=== PATIENT | male | born 1965 | race Caucasian/White ===

== ENCOUNTER 2020-12-06 19:11 | Emergency (ER) | payer MEDICAID, SELFPAY ==
--- NOTE | ~2020-12-06 | XR_ITS ---
EXAMINATION: XR CHEST CLINICAL INFORMATION: Unwitnessed fall. COMPARISON: None TECHNIQUE: AP view of the chest was obtained. FINDINGS: Thoracic aortic stent graft. Intact sternotomy wires. Surgical clips overlying the mediastinum, left supraclavicular region and right upper lobe. No focal airspace opacities, pleural effusions or pneumothorax. No evidence of acutely displaced rib fractures. XR/XR chest 1V IMPRESSION: Clear lungs. No acutely displaced rib fractures.
--- NOTE | ~2020-12-06 | CT_ITS ---
EXAMINATION: CT HEAD WITHOUT CONTRAST CT CERVICAL SPINE WITHOUT CONTRAST CLINICAL INFORMATION: Weakness fall with neck pain. COMPARISON: None TECHNIQUE: Contiguous axial imaging was performed from the skull base to vertex without intravenous administration of contrast. Contiguous axial imaging was performed from the upper chest through the skull base without intravenous administration of contrast. Coronal and sagittal reformats were obtained at the acquisition workstation. This CT examination was performed using dose optimization techniques as appropriate, variously including the following: *Automated exposure control *Adjustment of mA and/or kV according to patient size (this includes techniques or standardized protocols for targeted exams where dose is matched to indication/reason for exam; i.e. extremities or head) *Use of iterative reconstruction technique DLP: 305 mGy-cm FINDINGS: Head: There is a large territory of encephalomalacia/gliosis across the left supratentorial brain in the territory of the left MCA, likely related with an old infarct/insult. There is associated ex vacuo dilatation of the left lateral ventricle. Otherwise, hightower to white matter differentiation is preserved. No evidence of acute intracranial hemorrhage or edematous territorial infarction. No evidence of obstructive hydrocephalus. No abnormal mass effect or midline shift. No extra-axial fluid collections. Partially opacified right frontal sinus and right ethmoid air cells. Mild mucosal thickening elsewhere in the paranasal sinuses, greater on the right sphenoidal sinus. The mastoids are clear. The left eyeball is asymmetrically decreased with posterior calcifications and hyperlucent rim, likely related with a prosthesis. Correlate with prior surgical history. Cervical Spine: The atlantooccipital and atlantoaxial articulations remain well aligned. There is reversal of the normal cervical lordosis with apex at C5-C6. Anatomic alignment is otherwise preserved. There is enlargement of the right vertebral foramen at C4 (152:4) likely congenital. No evidence of acute compression deformities. The posterior elements are well aligned. There is moderate disc space narrowing at C4-C5. Otherwise, disc spaces are relatively preserved. The vertebral body heights are maintained. There is no prevertebral soft tissue swelling. There is partial visualization of a thoracic aortic stent. There is also partial visualization of a stent communicating the carotid arteries with the left subclavian artery. The thyroid gland and remaining cervical soft tissues are normal in appearance. The lung apices demonstrate biapical pleural thickening and dependent atelectases. There is a tiny granuloma in the right apex (251:4). CT/CT cervical spine wo con IMPRESSION: Large chronic infarction within the left MCA territory. No acute erythematosus territorial infarction or intracranial hemorrhage. No acute cervical abnormalities.
--- NOTE | 2020-12-06 19:23 | ED_ITS ---
HPI - Head Injury General Chief complaint: Fall Stated complaint: Fall Source: patient and EMS Mode of arrival: EMS Limitations: physical limitation (Right-sided hemiplegia) History of Present Illness HPI Narrative: 55-year-old male from a residential facility presents for an unwitnessed fall. He states to have head and neck pain. Patient is aphasic but able to make his needs known. MD Complaint: head injury and head pain Onset (ago): hour(s) (Within the hour of arrival) Arrival Conditions: C-spine immobilization present Mechanism of Injury: unsure Place: other (detention facility) Loss of Consciousness: unsure Location of injury: occipital Severity: mild Severity scale (1-10): 4 Quality: aching Radiation: neck Other Injuries: none Context: other anticoagulant use Related Data Allergies Allergy/AdvReac Type Severity Reaction Status Date / Time No Known Allergies Allergy Verified 12/06/20 19:26 Review of Systems Review of Systems: Constitutional: No Fever, No Chills ENT/Mouth: No Ear Pain, No Hoarseness, No sore throat Eyes: No Eye Pain, No Swelling, No Redness, No Foreign Body Cardiovascular: No Chest Pain, No SOB Respiratory: No Cough, No Dyspnea Gastrointestinal: No Nausea, No Vomiting, No Diarrhea, No abdominal Pain Genitourinary: No Dysuria, No Hematuria Musculoskeletal: positive head and neck pain, No Myalgias, No Joint Swelling Skin: No Skin lacerations, No rash Neuro: No Weakness, No Numbness, No Paresthesias, No Loss of Consciousness, No Dizziness, No Headache Psych: No Anxiety/Panic, No Depression Heme/Lymph: no easy bruising, no Lymphadenopathy Endocrine: No Polyuria, No Polydipsia Yes all other systems are reviewed and are negative [facility] Past Medical History Attestation statement: The following information was validated with the patient. Source: old records reviewed Social History Social History Alcohol intake: never Patient Tobacco Use Status: Never used Tobacco Use of substances other than those prescribed or required for medical reasons: No Advance Directives: No Advance Directives Information Provided: No Physical Exam Vital Signs: Vital Signs: Last Vital Signs Temp 98.6 F 12/06/20 19:44 Pulse 77 12/06/20 19:44 Resp 20 12/06/20 19:44 BP 150/80 H 12/06/20 19:44 Pulse Ox 98 12/06/20 19:44 Body Mass Index 24.5 Appearance: Alert. Oriented X3. No acute distress. Aphasic but is able to make needs known. Eyes: Right corneal opaque per baseline. ENT: Pharynx normal. Moist mucous membranes. Neck: Normal inspection. Neck supple. Tender to palpation. No vertebral step- offs. CVS: Normal heart rate and rhythm. Pulses normal. Respiratory: No respiratory distress. Breath sounds normal. Abdomen: Soft and nontender. Skin: Skin warm and dry. Normal skin color. Normal skin turgor. Extremities: Right-sided hemiplegia per baseline. Neuro: No motor deficit. No sensory deficit. Neurovascularly intact. Brisk capillary refill to all extremities. Course Course Course Narrative: 55-year-old male presents from residential facility after a fall. States to have head pain and neck pain. No visible injuries to the rest of his body. Patient is incontinent of bowel and bladder, right-sided hemiplegia, right cornea is opaque, unable to completely assess cranial nerves 2 prior history of CVA. Will order CT scan of head and cervical spine, straight cath for urine, and lab values with chest x-ray and EKG. CT head and neck negative for acute findings. C-collar removed. White count slightly elevated at 11.4. Patient is afebrile and appears nontoxic. Highly likely due to fall earlier today, no indication of infection in the urine. Small amount heme noted however patient has been straight catheterization. Vital signs are stable and within normal limits. Chest x-ray appears clear. Plan of care is to discharge to home/residential facility. MDM - Head Injury Differential Diagnosis Differential diagnosis: Likely concussion without loss of consciousness, subarachnoid hematoma and subdural hematoma Medical Records Attestation: I reviewed the patient's medical records. Lab Data Attestation: I reviewed the patient's lab results. Result diagrams: 12/06/20 19:36 12/06/20 19:36 Labs: Lab Results 12/06/20 12/06/20 12/06/20 Range/Units 19:36 19:36 19:36 WBC 11.4 H (4.8-10.8) X10*3/uL RBC 4.88 (4.60-5.80) X10*6/uL Hgb 14.9 (14.0-18.0) g/dl Hct 45.1 (42-52) % MCV 92.4 (80-98) fL MCH 30.5 (27.0-33.0) pg MCHC 33.0 (31.0-36.0) g/dl RDW 13.1 (11.0-16.0) % Plt Count 180 (160-400) X10*3/uL MPV 11.5 (9.4-12.4) fL Immature Gran % (Auto) 0.4 (0.0-0.4) % Neut % (Auto) 84.8 H (45-73) % Lymph % (Auto) 8.0 L (20-40) % Jackson % (Auto) 6.3 (2-11) % Eos % (Auto) 0.3 (0-4) % Baso % (Auto) 0.2 (0-2) % Lymph # (Auto) 0.9 L (1.2-4.9) X10*3/uL Jackson # (Auto) 0.7 (0.1-1.2) X10*3/uL Eos # (Auto) 0.0 (0.0-0.4) X10*3/uL Baso # (Auto) 0.0 (0.0-0.2) X10*3/uL Abs Immat Gran (auto) 0.05 H (0.00-0.03) X10*3/uL Absolute Neuts (auto) 9.6 H (2.0-8.3) X10*3/uL Absolute Nucleated RBC 0.000 (0.0-0.012) X10*3/uL Nucleated RBC % (auto) 0.0 (0.0-0.2) /100WBC Sodium 139 (135-145) mmol/L Potassium 4.1 (3.3-5.1) mmol/L Chloride 105 (96-108) mmol/L Carbon Dioxide 26 (22-29) mmol/L Anion Gap 12 (12-20) BUN 18 H (9-16) mg/dL Creatinine 0.96 (0.5-1.4) mg/dL Estim Creat Clear Calc 83.1 Estimated GFR > 60 POC Glucose (60-115) mg/dL Random Glucose 99 (60-115) mg/dL Calcium 9.0 (8.4-10.2) mg/dL Total Creatine Kinase 382 H (38-174) U/L Troponin I High Sens 22.7 (<3.5-35.0) ng/L Urine Color Urine Appearance Urine pH (5.0-8.0) Ur Specific [place] (1.005-1.025) Urine Protein (NEG-TRACE) MG/DL Urine Glucose (UA) (NEG) MG/DL Urine Ketones (NEG) MG/DL Urine Blood (NEG) Urine Nitrite (NEG) Ur Leukocyte Esterase (NEG) Urine RBC (0) /HPF Urine WBC (0-4) /HPF Ur Squamous Epith Cells /LPF Urine Bacteria /LPF 12/06/20 12/06/20 Range/Units 19:47 19:51 WBC (4.8-10.8) X10*3/uL RBC (4.60-5.80) X10*6/uL Hgb (14.0-18.0) g/dl Hct (42-52) % MCV (80-98) fL MCH (27.0-33.0) pg MCHC (31.0-36.0) g/dl RDW (11.0-16.0) % Plt Count (160-400) X10*3/uL MPV (9.4-12.4) fL Immature Gran % (Auto) (0.0-0.4) % Neut % (Auto) (45-73) % Lymph % (Auto) (20-40) % Jackson % (Auto) (2-11) % Eos % (Auto) (0-4) % Baso % (Auto) (0-2) % Lymph # (Auto) (1.2-4.9) X10*3/uL Jackson # (Auto) (0.1-1.2) X10*3/uL Eos # (Auto) (0.0-0.4) X10*3/uL Baso # (Auto) (0.0-0.2) X10*3/uL Abs Immat Gran (auto) (0.00-0.03) X10*3/uL Absolute Neuts (auto) (2.0-8.3) X10*3/uL Absolute Nucleated RBC (0.0-0.012) X10*3/uL Nucleated RBC % (auto) (0.0-0.2) /100WBC Sodium (135-145) mmol/L Potassium (3.3-5.1) mmol/L Chloride (96-108) mmol/L Carbon Dioxide (22-29) mmol/L Anion Gap (12-20) BUN (9-16) mg/dL Creatinine (0.5-1.4) mg/dL Estim Creat Clear Calc Estimated GFR POC Glucose 108 (60-115) mg/dL Random Glucose (60-115) mg/dL Calcium (8.4-10.2) mg/dL Total Creatine Kinase (38-174) U/L Troponin I High Sens (<3.5-35.0) ng/L Urine Color YELLOW Urine Appearance CLEAR Urine pH 6.5 (5.0-8.0) Ur Specific [place] 1.015 (1.005-1.025) Urine Protein NEG (NEG-TRACE) MG/DL Urine Glucose (UA) NEG (NEG) MG/DL Urine Ketones NEG (NEG) MG/DL Urine Blood 1+ H (NEG) Urine Nitrite NEG (NEG) Ur Leukocyte Esterase NEG (NEG) Urine RBC 1-4 (0) /HPF Urine WBC 0 (0-4) /HPF Ur Squamous Epith Cells TRACE /LPF Urine Bacteria TRACE /LPF Imaging Data CT head neck: Attestation: I personally reviewed and interpreted this imaging study as follows: Radiologist's impression: FINDINGS: LUNG BASES: Mild dependent atelectasis. No focal consolidation or pleural effusion.? LIVER, GALLBLADDER, AND BILIARY TREE: The liver is normal in size, shape, and attenuation. No focal hepatic lesion or biliary ductal dilatation is present. The gallbladder is unremarkable with no evidence of radiopaque gallstones, gallbladder wall thickening, or obvious pericholecystic inflammatory changes.? PANCREAS: Unremarkable.? SPLEEN: Unremarkable.? ADRENAL GLANDS: Unremarkable.? KIDNEYS AND URETERS: There is mild left hydroureteronephrosis with a 2 mm stone in the left ureter at the level of L2-L3. No other renal stones. No right hydroureteronephrosis. No perinephric fat stranding or free fluid. No focal parenchymal lesions.? BLADDER: Unremarkable.? GASTROINTESTINAL TRACT: Small hiatal hernia. The stomach and the small bowel are nondilated. No pericolic inflammatory changes or bowel obstruction. Moderate amount of stool burden throughout the colon. Normal appendix.? ABDOMINAL WALL: Tiny fat-containing umbilical hernia.? LYMPH NODES: No lymphadenopathy by size criteria. VASCULAR: Scattered atherosclerotic disease of the abdominal aorta which is of normal caliber. PELVIC VISCERA: Trace amount of free fluid is likely physiologic. There is some very minimal fat stranding surrounding the cervix/lower uterine body worse on the right side (66:3 and 54:7) of uncertain clinical significant and likely accentuated by volume averaging. No adnexal lesions.? OSSEOUS STRUCTURES: No acute or aggressive osseous abnormalities.? CT/CT abdomen pelvis wo con IMPRESSION: Mild left hydronephrosis caused by a 2 mm stone in the left ureter. ? Very minimal fat stranding surrounding the lower uterus/cervix of uncertain significance and possibly accentuated by volume averaging. Correlate clinically for an acute infectious/inflammatory process such as cervicitis. Chest x-ray: Attestation: I personally reviewed and interpreted this imaging study as f sekou: Radiologist's impression: COMPARISON: None TECHNIQUE: AP view of the chest was obtained. FINDINGS: Thoracic aortic stent graft. Intact sternotomy wires. Surgical clips overlying the mediastinum, left supraclavicular region and right upper lobe. No focal airspace opacities, pleural effusions or pneumothorax. No evidence of acutely displaced rib fractures. XR/XR chest 1V IMPRESSION: Clear lungs. ? No acutely displaced rib fractures. ? ECG Data Attestation: I personally reviewed and interpreted this ECG as follows: ECG interpretation date: 12/06/20 ECG interpretation time: 19:40 Prior ECG tracings: not available for review Interpretation: Vent. rate 77 BPM SD interval 140 ms QRS duration 102 ms QT/QTc 374/423 ms P-R-T axes 49 -51 77 Normal sinus rhythm Left anterior fascicular block Abnormal ECG No previous ECGs available Discharge Plan Discharge Clinical Impression: Concussion Qualifiers: Encounter type: initial encounter Loss of consciousness presence/duration: without LOC Qualified Code(s): S06.0X0A - Concussion without loss of consciousness, initial encounter Fall Qualifiers: Encounter type: initial encounter Qualified Code(s): W19.XXXA - Unspecified fall, initial encounter Patient Disposition: [facility] Instructions: Concussion (ED), Post Concussion Syndrome (ED) Additional Instructions: You were evaluated for injury sustained from a fall. CT scan of head and cervical spine are negative for acute findings. X-rays of the chest are negativ e. CPK is 382, not indicative of rhabdomyolysis. Please follow-up post concussive protocol. Thank you for choosing this emergency department for evaluation. Please follow-up with primary care physician as needed. Return to the emergency department for any new, concerning, or worsening symptoms.
--- NOTE | 2020-12-06 19:26 | ECG_ITS ---
Test Reason : FALL Blood Pressure : / mmHG Vent. Rate : 077 BPM Atrial Rate : 077 BPM P-R Int : 140 ms QRS Dur : 102 ms QT Int : 374 ms P-R-T Axes : 049 -51 077 degrees QTc Int : 423 ms Normal sinus rhythm Left anterior fascicular block Abnormal ECG No previous ECGs available Referred By: Christine Cabello Electronically Signed By:MARIALUISA BARROW MD
[2020-12-06 19:37] VITALS: BP 150/80; BP 160/82; PULSE 81; PULSE 82; RESP 20; TEMP 36.4; O2SAT 95; O2SAT 98; BMI 24.5
[2020-12-06 19:44] VITALS: BP 150/80; PULSE 77; RESP 20; TEMP 37; O2SAT 98
[2020-12-06 19:53] LABS: MANUAL DIFF FLAG NO
[2020-12-06 19:55] LABS: Basophils Percent Auto 0.2 % (0-2); Eosinophils Percent Auto 0.3 % (0-4); Hematocrit 45.1 % (42-52); Hemoglobin 14.9 g/dl (14.0-18.0); Imm Gran Abs Auto 0.05 X10*3/uL (0.00-0.03); Imm Gran Pct Auto 0.4 % (0.0-0.4); Lymphocytes Absolute Auto 0.9 X10*3/uL (1.2-4.9); Mean Corpuscular Hemoglobin 30.5 pg (27.0-33.0); Mean Corpuscular Volume 92.4 fL (80-98); Mean Platelet Volume 11.5 fL (9.4-12.4); Monocytes Absolute Auto 0.7 X10*3/uL (0.1-1.2); Monocytes Percent Auto 6.3 % (2-11); Neutrophils Absolute Auto 9.6 X10*3/uL (2.0-8.3); Neutrophils Percent Auto 84.8 % (45-73); Platelet Count 180 X10*3/uL (160-400); Red Blood Count 4.88 X10*6/uL (4.60-5.80); Red Cell Distribution Width 13.1 % (11.0-16.0); White Blood Count 11.4 X10*3/uL (4.8-10.8)
[2020-12-06 19:56] LABS: Glucose, Whole Blood 108 mg/dL (60-115)
[2020-12-06 19:56] LABS: Appearance Urine CLEAR; Color Urine YELLOW; Glucose Urine UA NEG (NEG); Leukocyte Esterase Urine NEG (NEG); Nitrite Urine NEG (NEG); PH 6.5 (5.0-8.0); Specific Gravity - Urine 1.015 (1.005-1.025); UACC Culture Trigger NO; Urine Blood 1+ (NEG); Urine Ketones NEG (NEG); Urine Protein NEG (NEG-TRACE)
[2020-12-06 20:08] LABS: Bacteria Urine TRACE /LPF; Squamous Epithelial Cell Urine TRACE /LPF; WBC Urine 0 /HPF (0-4)
[2020-12-06 20:09] LABS: Anion Gap 12 (12-20); Blood Urea Nitrogen 18 mg/dL (9-16); Carbon Dioxide 26 mmol/L (22-29); Chloride 105 mmol/L (96-108); Creatinine Clr Calc Pharmacy 83.1; Estimated Glomerular Filt Rate > 60; Glucose Random 99 mg/dL (60-115); Potassium 4.1 mmol/L (3.3-5.1); Sodium 139 mmol/L (135-145)
[2020-12-06 20:17] LABS: Troponin-I High Sensitivity 22.7 ng/L (<3.5-35.0)
[2020-12-06 22:51] VITALS: BP 165/76; PULSE 76; RESP 16; O2SAT 97
--- NOTE | 2020-12-06 23:14 | PC.NURSE ---
Pt remained alert and oriented at baseline mental status. Pt denies pain. No IV in place, vials stable. EMS received detailed report and copy of scan results given for assisted. Pt educated and is ready to be discharged.
== END 2020-12-06 23:15 | disposition skilled nursing facility (03) ==
PROVIDERS: Nurse Practitioner Family; Emergency Provider Internal Medicine; PCP Family Medicine
DX: S06.0X0A Concussion without loss of consciousness, initial encounter (principal); Z86.73 Personal history of transient ischemic attack (TIA), and cerebral infarction without residual deficits; Z79.01 Long term (current) use of anticoagulants; W19.XXXA Unspecified fall, initial encounter; Y93.9 Activity, unspecified; Y92.129 Unspecified place in nursing home as the place of occurrence of the external cause; Y99.9 Unspecified external cause status
CPT/HCPCS: 36415; 70450; 71045; 72125; 80048; 81001; 82550; 82947; 84484; 85025; 93005; 99285

== ENCOUNTER 2021-01-05 10:21 | Emergency (ER) | payer MEDICAID, SELFPAY ==
--- NOTE | ~2021-01-05 | CT_ITS ---
EXAMINATION: CT HEAD WITHOUT CONTRAST CLINICAL INFORMATION: 55-year-old male with history of new onset seizure. History of stroke. Evaluate for intracranial bleed. COMPARISON: 12/06/2020. TECHNIQUE: Contiguous axial imaging was performed from the skull base to vertex without intravenous administration of contrast. This CT examination was performed using dose optimization techniques as appropriate, variously including the following: *Automated exposure control *Adjustment of mA and/or kV according to patient size (this includes techniques or standardized protocols for targeted exams where dose is matched to indication/reason for exam; i.e. extremities or head) *Use of iterative reconstruction technique DLP: 680 mGy-cm FINDINGS: Again noted is a large region of encephalomalacia from old infarction in the left middle cerebral artery territory. The region of hypoattenuation/gliosis involves the left frontal, temporal and parietal lobes. There is ex vacuo dilatation of the left lateral ventricle. There is an old lacunar infarct in the right centrum semiovale. No evidence of an acute major vascular territory infarction. No intracranial hemorrhage, extra-axial fluid collection, focal mass effect or midline shift. The brainstem and cerebellum are unremarkable. Small amount of mucus is present in the inferior left maxillary sinus. Minimal secretions of anterior right sphenoid sinus. No air-fluid levels within paranasal sinuses. Mastoid air cells are well aerated. There is a scleral buckle device of the left globe, which is irregular, hyperdense and peripherally calcified (phthisis bulbi). CT/CT head/brain wo con IMPRESSION: No hemorrhage or other acute intracranial pathology compared to 12/06/2020.
--- NOTE | ~2021-01-05 | XR_ITS ---
EXAMINATION: XR CHEST CLINICAL INFORMATION: Seizure. Rule out aspiration pneumonia. COMPARISON: December 06, 2020 TECHNIQUE: AP portable view of the chest was obtained. FINDINGS: There is no evidence of acute parenchymal disease, pneumothorax or pleural effusion. Heart normal size. Status post aortic valve placement. Thoracic aortic stent graft seen in place. Clips about the left apex.. XR/XR chest 1V IMPRESSION: No acute disease.
[2021-01-05 11:12] VITALS: BP 150/90; PULSE 90; O2SAT 95
[2021-01-05 11:19] VITALS: BP 115/79; PULSE 96; RESP 18; TEMP 36.7; O2SAT 96; BMI 24.3
[2021-01-05 11:33] LABS: Glucose, Whole Blood 99 mg/dL (60-115)
[2021-01-05 11:35] LABS: MANUAL DIFF FLAG NO
--- NOTE | 2021-01-05 11:39 | ECG_ITS ---
Test Reason : seizure Blood Pressure : / mmHG Vent. Rate : 073 BPM Atrial Rate : 073 BPM P-R Int : 132 ms QRS Dur : 096 ms QT Int : 380 ms P-R-T Axes : 034 -41 068 degrees QTc Int : 418 ms Normal sinus rhythm Left anterior fascicular block Abnormal ECG When compared with ECG of 06-DEC-2020 19:40, No significant change was found Referred By: Rodrigo Watkins Electronically Signed By:MARIALUISA BARROW MD
[2021-01-05 11:40] LABS: Basophils Percent Auto 0.3 % (0-2); Eosinophils Absolute Auto 0.1 X10*3/uL (0.0-0.4); Eosinophils Percent Auto 1.6 % (0-4); Hematocrit 44.9 % (42.0-52.0); Hemoglobin 14.4 g/dl (14.0-18.0); Imm Gran Abs Auto 0.07 X10*3/uL (0.00-0.03); Imm Gran Pct Auto 1.1 % (0.0-0.4); Lymphocytes Absolute Auto 0.9 X10*3/uL (1.2-4.9); Lymphocytes Percent Auto 15.2 % (20-40); Mean Corpuscular HGB Conc 32.1 g/dl (31.0-36.0); Mean Corpuscular Hemoglobin 30.5 pg (27.0-33.0); Mean Corpuscular Volume 95.1 fL (80.0-98.0); Mean Platelet Volume 11.9 fL (9.4-12.4); Monocytes Absolute Auto 0.6 X10*3/uL (0.1-1.2); Monocytes Percent Auto 8.9 % (2-11); Neutrophils Absolute Auto 4.5 x10*3/uL (2.0-8.3); Neutrophils Percent Auto 72.9 % (45-73); Platelet Count 176 X10*3/uL (160-400); Red Blood Count 4.72 X10*6/uL (4.60-5.80); White Blood Count 6.2 X10*3/uL (4.8-10.8)
--- NOTE | 2021-01-05 11:43 | ED_ITS ---
HPI - Seizure General Chief Complaint: Seizure Stated Complaint: SZ,POST ICTAL PER SNF Time Seen by Provider: 01/05/21 11:28 Source: EMS Mode of arrival: EMS Limitations: other (Expressive aphasia) History of Present Illness HPI Narrative: 55-year-old male with a history stroke with residual right-sided hemiplegia and expressive aphasia who had a 6 minutes witnessed ?focal seizure at his long-term care facility. No information can be obtained from the patient secondary to his expressive aphasia but he does follow simple commands. No details regarding the seizure were provided by the facility and the information came from EMS report to nursing. In reviewing the patient's record, he was seen here in the emergency department on 12/06/2020 for a fall with a negative workup including negative CT scan of the head and cervical spine. The patient's medications were reviewed and there are no seizure medication there prescribed for this patient. Related Data Previous Rx's Medication Instructions Recorded levetiracetam 500 mg tablet 500 mg PO BID #60 tab 01/05/21 (Keppra) Allergies Allergy/AdvReac Type Severity Reaction Status Date / Time No Known Allergies Allergy Verified 12/06/20 19:26 Review of Systems Review of Systems: Yes Other (Unobtainable secondary to expressive aphasia) [facility] Past Medical History [facility] Narrative: Past medical history: Hypertension, GERD, depression, expressive aphasia, stroke with right-sided hemiplegia, blindness. Social history: The patient does not smoke, drink or use alcohol, he is currently residing at a long-term care facility. Medical History CVA (cerebral vascular accident) Depression GERD (gastroesophageal reflux disease) HTN (hypertension) Social History Social History Alcohol intake: never Patient Tobacco Use Status: Never used Tobacco Advance Directives: Yes Advance Directives on File: Yes Advance Directives Date on File: 01/05/21 Physical Exam Vital Signs: Vital Signs: Last Vital Signs Temp 97.5 F 01/05/21 12:38 Pulse 71 01/05/21 12:38 Resp 15 01/05/21 12:38 BP 115/79 01/05/21 12:38 Pulse Ox 97 01/05/21 12:38 Body Mass Index 24.3 Const: Other: Awake, alert, male, he is able to talk however he repeat words that you do not correlate to what is going on. He kept repeating ?daddy , vomiting, pills, house . He does not appear to be in distress. HENMT: Head: Yes normal to inspection, Yes normocephalic and Yes atraumatic Ears: external ears normal General nose exam: Normal external nose present Face and sinus: Yes normal facial exam Mouth: Normal oral and palatal mucosa present Throat: Yes posterior oropharynx normal Eyes: Other: Right cornea is cloudy, left eye appears to be blind Neck: Neck: Yes normal visual inspection, Yes no lymphadenopathy, Yes trachea midline and Yes supple Chest: Chest palpation & inspection: normal inspection of the chest and normal palpation of entire chest wall Resp: Effort & Inspection: normal respiratory effort and able to speak in complete sentences Auscultation: clear to auscultation bilaterally Cardio: Rate: regular rate Rhythm: regular rhythm Heart sounds: S1 normal heart sound present, S2 normal heart sound present and no murmurs GI: Inspection: Yes normal to inspection Palpation (GI): Soft to palpation, nontender and no guarding Auscultation: normal bowel sounds : General: Yes no CVA tenderness Back/Spine/Pelvis: Back: no CVA tenderness Skin: General skin exam: no rashes or lesions noted Neuro: Other: Patient is able to move his left upper and lower extremity when asked, he is not able to move his right upper right lower extremity secondary to hemiplegia, cranial nerves are difficult to evaluate given his expressive aphasia in his inability to cooperate with the exam. Extrem: General: Yes normal to inspection Psych: Appearance: grossly normal Speech and movement: Normal speech and movement present Affect: normal affect Attitude: cooperative Thought process: Normal thought process present Thought content: Normal thought co ntent present Course Course Course Narrative: 55-year-old male with a history stroke with right-sided hemiplegia and aphasia who presents with a possible 6 minutes focal seizure which was witnessed at his care facility however I do not have any details regarding this event. The patient's physical examination is consistent with his previous stroke with right-sided hemiplegia. I did order a CBC, BMP, urinal ysis, 12 EKG, CT scan of the head without contrast. Patient was ordered to get Ativan 2 mg IV to prevent further seizures . 1334: Laboratory evaluation: CBC was normal. CMP was normal. Urinalysis was unremarkable. CT scan of the head revealed no acute findings. Chest x-ray was unremarkable. I did discuss the patient's presentation workup with his daughter, Karlie Coreas. I will contact the on-call provider at the nursing facility and discuss the patient's presentation and discuss whether not they want to start the patient on a new anti seizure medication. 1347: I did discuss the patient's presentation with the long-term care facility's nurse practitioner, Nicholas Moore. The patient will be loaded with Keppra 500 mg IV and started on Keppra 500 mg twice a day. He will then be di scharged home. MDM - Seizure Lab Data Result diagrams: 01/05/21 11:29 01/05/21 11:29 Labs: Lab Results 01/05/21 01/05/21 01/05/21 Range/Units 11:26 11:29 11:29 WBC 6.2 (4.8-10.8) X10*3/uL RBC 4.72 (4.60-5.80) X10*6/uL Hgb 14.4 (14.0-18.0) g/dl Hct 44.9 (42.0-52.0) % MCV 95.1 (80.0-98.0) fL MCH 30.5 (27.0-33.0) pg MCHC 32.1 (31.0-36.0) g/dl RDW 14.0 (11.0-16.0) % Plt Count 176 (160-400) X10*3/uL MPV 11.9 (9.4-12.4) fL Immature Gran % (Auto) 1.1 H (0.0-0.4) % Neut % (Auto) 72.9 (45-73) % Lymph % (Auto) 15.2 L (20-40) % [place] % (Auto) 8.9 (2-11) % Eos % (Auto) 1.6 (0-4) % Baso % (Auto) 0.3 (0-2) % Lymph # (Auto) 0.9 L (1.2-4.9) X10*3/uL [place] # (Auto) 0.6 (0.1-1.2) X10*3/uL Eos # (Auto) 0.1 (0.0-0.4) X10*3/uL Baso # (Auto) 0.0 (0.0-0.2) X10*3/uL Abs Immat Gran (auto) 0.07 H (0.00-0.03) X10*3/uL Absolute Neuts (auto) 4.5 (2.0-8.3) x10*3/uL Absolute Nucleated RBC 0.000 (0.0-0.012) X10*3/uL Nucleated RBC % (auto) 0.0 (0.0-0.2) /100WBC Sodium 141 (135-145) mmol/L Potassium 3.9 (3.3-5.1) mmol/L Chloride 112 H (96-108) mmol/L Carbon Dioxide 23 (22-29) mmol/L Anion Gap 10 L (12-20) BUN 10 (9-16) mg/dL Creatinine 0.73 (0.5-1.4) mg/dL Estim Creat Clear Calc 117.0 Estimated GFR > 60 POC Glucose 99 (60-115) mg/dL Random Glucose 93 (60-115) mg/dL Calcium 7.6 L D (8.4-10.2) mg/dL Urine Color Urine Appearance Urine pH (5.0-8.0) Ur Specific [place] (1.005-1.025) Urine Protein (NEG-TRACE) MG/DL Urine Glucose (UA) (NEG) MG/DL Urine Ketones (NEG) MG/DL Urine Blood (NEG) Urine Nitrite (NEG) Ur Leukocyte Esterase (NEG) Urine RBC (0) /HPF Urine WBC (0-4) /HPF Ur Squamous Epith Cells /LPF Urine Bacteria /LPF 01/05/21 Range/Units 12:31 WBC (4.8-10.8) X10*3/uL RBC (4.60-5.80) X10*6/uL Hgb (14.0-18.0) g/dl Hct (42.0-52.0) % MCV (80.0-98.0) fL MCH (27.0-33.0) pg MCHC (31.0-36.0) g/dl RDW (11.0-16.0) % Plt Count (160-400) X10*3/uL MPV (9.4-12.4) fL Immature Gran % (Auto) (0.0-0.4) % Neut % (Auto) (45-73) % Lymph % (Auto) (20-40) % [place] % (Auto) (2-11) % Eos % (Auto) (0-4) % Baso % (Auto) (0-2) % Lymph # (Auto) (1.2-4.9) X10*3/uL [place] # (Auto) (0.1-1.2) X10*3/uL Eos # (Auto) (0.0-0.4) X10*3/uL Baso # (Auto) (0.0-0.2) X10*3/uL Abs Immat Gran (auto) (0.00-0.03) X10*3/uL Absolute Neuts (auto) (2.0-8.3) x10*3/uL Absolute Nucleated RBC (0.0-0.012) X10*3/uL Nucleated RBC % (auto) (0.0-0.2) /100WBC Sodium (135-145) mmol/L Potassium (3.3-5.1) mmol/L Chloride (96-108) mmol/L Carbon Dioxide (22-29) mmol/L Anion Gap (12-20) BUN (9-16) mg/dL Creatinine (0.5-1.4) mg/dL Estim Creat Clear Calc Estimated GFR POC Glucose (60-115) mg/dL Random Glucose (60-115) mg/dL Calcium (8.4-10.2) mg/dL Urine Color YELLOW Urine Appearance CLEAR Urine pH 6.0 (5.0-8.0) Ur Specific [place] 1.015 (1.005-1.025) Urine Protein NEG (NEG-TRACE) MG/DL Urine Glucose (UA) NEG (NEG) MG/DL Urine Ketones NEG (NEG) MG/DL Urine Blood TRACE (NEG) Urine Nitrite NEG (NEG) Ur Leukocyte Esterase NEG (NEG) Urine RBC 1-4 (0) /HPF Urine WBC 0 (0-4) /HPF Ur Squamous Epith Cells NONE /LPF Urine Bacteria NONE /LPF ECG Data Attestation: I personally reviewed and interpreted this ECG as follows: Interpretation: 1209: Normal sinus rhythm with a rate of 73, normal [place] interval, QRS duration and QTC interval, no ST segment elevation, no ST segment depression, inverted T-wave in aVL, no PACs, no PVCs. Discharge Plan Discharge Clinical Impression: Focal seizure Patient Disposition: [facility] Instructions: New-Onset Seizure in Adults (ED) Additional Instructions: The CT scan of your head was unremarkable with no new acute findings. Your chest x-ray was normal. Your laboratory evaluation included a CBC and CMP. This was normal. Urinalysis was unremarkable. You received Ativan 2 mg IV here in the emergency department. I am concerned that you may have had a seizure today therefore you were given Keppra 500 mg IV. I am starting you on Keppra 500 mg twice a day. I did discuss this treatment plan with the nurse practitioner who is covering her facility, Nicholas Moore. Your provider will decide what further workup you need as an outpatient and whether or not to continue the Keppra. Prescriptions: New levetiracetam [Keppra] 500 mg tablet 500 mg PO BID Qty: 60 RF: 0
[2021-01-05 11:53] LABS: Anion Gap 10 (12-20); Blood Urea Nitrogen 10 mg/dL (9-16); Calcium 7.6 mg/dL (8.4-10.2); Carbon Dioxide 23 mmol/L (22-29); Chloride 112 mmol/L (96-108); Estimated Glomerular Filt Rate > 60; Glucose Random 93 mg/dL (60-115); Potassium 3.9 mmol/L (3.3-5.1); Sodium 141 mmol/L (135-145)
[2021-01-05] MEDS: 0.9 % Sodium Chloride 1,000 ML 999 ML IV (11:56)
[2021-01-05] MEDS: LORazepam 2 MG/ML VIAL IVPUSH (11:56)
[2021-01-05 12:38] VITALS: BP 115/79; PULSE 71; RESP 15; TEMP 36.4; O2SAT 97
[2021-01-05 12:40] LABS: Appearance Urine CLEAR; Color Urine YELLOW; Glucose Urine UA NEG (NEG); Leukocyte Esterase Urine NEG (NEG); Nitrite Urine NEG (NEG); Specific Gravity - Urine 1.015 (1.005-1.025); UACC Culture Trigger NO; Urine Blood TRACE (NEG); Urine Ketones NEG (NEG); Urine Protein NEG (NEG-TRACE)
[2021-01-05 12:49] LABS: WBC Urine 0 /HPF (0-4)
[2021-01-05] MEDS: levETIRAcetam in NaCl (iso-os) 500 MG/100 ML PIGGYBACK 400 MG IV (13:56)
== END 2021-01-05 16:55 ==
PROVIDERS: Emergency Provider Emergency Medicine Emergency Medical Services; PCP Family Medicine
DX: G40.89 Other seizures (principal); I10 Essential (primary) hypertension; I69.351 Hemiplegia and hemiparesis following cerebral infarction affecting right dominant side; I69.320 Aphasia following cerebral infarction; H54.7 Unspecified visual loss; Z79.899 Other long term (current) drug therapy
CPT/HCPCS: 36415; 70450; 71045; 80048; 81001; 82947; 85025; 93005; 96361; 96374; 96375; 99284; J1953; J2060

== ENCOUNTER 2021-05-12 23:34 | Emergency (ER) | payer MEDICAID, SELFPAY ==
[2021-05-12 23:47] VITALS: BP 144/75; PULSE 76; O2SAT 93
[2021-05-12 23:52] VITALS: BP 161/72; PULSE 71; RESP 16; TEMP 36.7; O2SAT 93; BMI 31.6
[2021-05-13 00:06] VITALS: BP 161/72; PULSE 71; RESP 16; TEMP 36.7; O2SAT 93
--- NOTE | 2021-05-13 00:25 | ED_ITS ---
HPI - General Adult General Chief complaint: General Medical Stated complaint: si Time Seen by Provider: 05/12/21 23:50 Source: patient and EMS Mode of arrival: EMS Limitations: no limitations History of Present Illness HPI narrative: Patient comes to emergency room from a care home. The patient was sent to the emergency room because the staff states that he was making SI comments. The patient states that he is not suicidal or homicidal, denies being depressed or anxious. Patient has no complaints. Related Data Previous Rx's Medication Instructions Recorded levetiracetam 500 mg tablet 500 mg PO BID #60 tab 01/05/21 (Keppra) Allergies Allergy/AdvReac Type Severity Reaction Status Date / Time No Known Allergies Allergy Verified 12/06/20 19:26 Review of Systems Review of Systems: Constitutional : No Weight loss, No Fever, No Chills, No Night Sweats, No Fatigue, No Malaise ENT/Mouth : No Hearing loss, No Ear Pain, No Nasal Congestion, No Sinus Pain, No Hoarseness, No sore throat, No Rhinorrhea, No Swallowing Difficulty Eyes: No Eye Pain, No Swelling, No Redness, No Foreign Body, No Discharge, No Vision Changes Cardiovascular : No Chest Pain, No SOB, No Dyspnea on Exertion, No Orthopnea, No Edema, No Palpitations Respiratory : No Cough, No Sputum, No Wheezing, No Smoke Exposure, No Dyspnea Gastrointestinal : No Nausea, No Vomiting, No Diarrhea, No Constipation, No abdominal Pain, No Hematochezia, No Melena Genitourinary : no irregular bleeding, No Dysuria, No Urinary Frequency, No Hematuria, No Urinary Incontinence, No Urgency, No Flank Pain, No Urinary Flow Changes, No Hesitancy Musculoskeletal : No joint pain, No Myalgias, No Joint Swelling Skin : No Skin Lesions, No rash Neuro : No Weakness, No Numbness, No Paresthesias, No Loss of Consciousness, No Dizziness, No Headache Psych : No Anxiety/Panic, No Depression, No SI/HI/AH/VH, No Social Issues, Heme/Lymph: No Bruising, No Bleeding,No Lymphadenopathy Endocrine : No Polyuria, No Polydipsia, No Temperature Intolerance PMFSH Past Medical History Medical History CVA (cerebral vascular accident) Depression GERD (gastroesophageal reflux disease) HTN (hypertension) Social History Social History Alcohol intake: never Patient Tobacco Use Status: Never used Tobacco Advance Directives Date on File: 01/05/21 Physical Exam ED Vital Signs: Vital Signs - 24 hr 05/12/21 23:52 05/13/21 00:06 Temperature 98.1 F 98.1 F Pulse Rate 71 71 Respiratory Rate 16 16 Blood Pressure 161/72 H 161/72 H Pulse Oximetry 93 93 BMI result Body Mass Index 31.6 Const Other: Appearance: Alert. Oriented X3. No acute distress. Eyes: Bilateral corneal scarring ENT: Pharynx normal. Neck: Normal inspection. Neck supple. No lymph nodes noted. No crepitus CVS: Normal heart rate and rhythm. Pulses normal. Normal S1 and S2 Respiratory: No respiratory distress. Breath sounds normal. No Wheezing. No rales Abdomen: Soft and nontender. No rigidity. No distention. Skin: Skin warm and dry. Normal skin color. Normal skin turgor. Extremities: No lower extremity edema. No Lacerations. No Rash Neuro: Oriented X 3. No motor deficit. No sensory deficit. Moving all ext remities. No slurred speech. CN 2 through 12 grossly intact Psych: calm, cooperative, normal affect Course Course Course Narrative: Patient denies suicidal ideation. Care team consult requested. Likely, patient will return to his care home. Patient has no concerns or complaints at this time Physician observation started at 00:30 Discharge Plan Discharge Clinical Impression: Suicidal ideation Patient Disposition: Still a Patient Prescriptions: No Action levetiracetam [Keppra] 500 mg tablet 500 mg PO BID Qty: 60 0RF
[2021-05-13 02:00] VITALS: RESP 16
[2021-05-13 05:48] VITALS: BP 108/70; PULSE 72; RESP 16; O2SAT 95
[2021-05-13 06:00] VITALS: RESP 16
--- NOTE | 2021-05-13 07:21 | MHC.CARE ---
Smart sheet submitted
[2021-05-13 07:41] VITALS: BP 139/69; PULSE 69; RESP 18; TEMP 37.1; O2SAT 96
--- NOTE | 2021-05-13 12:52 | PHA.MEDREC ---
Pharmacy Consult ? Medication Reconciliation Pharmacy has completed the medication reconciliation. Received medication list from [facility]. Diana Galvan, SammiD
--- NOTE | 2021-05-13 13:32 | PC.NURSE ---
fang kovacs (auditor internal) at [facility] called [facility] for an update on pt sstatus.
[2021-05-13 14:46] VITALS: BP 181/81; PULSE 76; RESP 14; TEMP 36.6; O2SAT 95
--- NOTE | 2021-05-13 15:13 | MHC.CM.ED ---
Received case management consult from Jennifer ENGLE. Patient came to ER overnight from [facility] d/t HI/SI. Patient has been cleared by N. T/W spoke with YOUSUF Tucker at [facility]. Patient can leave at 6pm. [facility] BLS booked. Med nec with chart. Patient, Crystal ARSHAD and Jennifer ENGLE. Continue to monitor for d/c needs.
== END 2021-05-13 18:30 | disposition skilled nursing facility (03) ==
PROVIDERS: Emergency Provider Emergency Medicine
DX: R45.851 Suicidal ideations (principal); F32.A Depression, unspecified; Z79.899 Other long term (current) drug therapy
CPT/HCPCS: 99284

== ENCOUNTER 2022-04-13 17:53 | Emergency (ER) | payer MEDICAID, SELFPAY ==
--- NOTE | 2022-04-13 | ECG_ITS ---
Test Reason : CP Blood Pressure : / mmHG Vent. Rate : 069 BPM Atrial Rate : 069 BPM P-R Int : 134 ms QRS Dur : 098 ms QT Int : 384 ms P-R-T Axes : 046 -42 060 degrees QTc Int : 411 ms Normal sinus rhythm Left axis deviation Possible Inferior infarct , age undetermined Abnormal ECG When compared with ECG of 05-JAN-2021 12:09, No significant change was found Referred By: Generic ED Physician Electronically Signed By:Pal Hernandez
--- NOTE | ~2022-04-13 | XR_ITS ---
EXAMINATION: XR CHEST CLINICAL INFORMATION: Chest pain. COMPARISON: Chest radiograph 01/05/2021. TECHNIQUE: Frontal view of the chest was obtained. FINDINGS: Stable appearance of the cardiomediastinal silhouette with redemonstration of thoracic aortic stent graft, aortic valve replacement and midline sternotomy wires. Unchanged asymmetric elevation of the right hemidiaphragm. No focal airspace opacities, pleural effusions or pneumothorax. Redemonstration of surgical clips projecting over the left supraclavicular region. There are 2 new surgical clips projecting over the right midlung. No acute osseous abnormalities. EKG wires overlie the chest. XR/XR chest 1V IMPRESSION: 1. No acute cardiopulmonary findings. 2. There are 2 new surgical clips projecting over the right midlung. Correlate with surgical history.
[2022-04-13 18:00] VITALS: BP 128/97; BP 129/63; PULSE 70; PULSE 74; RESP 14; O2SAT 95; O2SAT 97; BMI 27.3
--- NOTE | 2022-04-13 18:20 | ED.CHESTPAIN ---
HPI - Chest Pain General Chief Complaint: Chest Pain Stated Complaint: L CP,NITRO/ASA GIVEN FROM SNF PER EMS Time Seen by Provider: 04/13/22 18:19 Source: patient Mode of arrival: EMS Limitations: other (slow mentation) History of Present Illness HPI narrative: patient has a history of CVA, HTN, GERN, SEizure, anxiety on eliquis, patient has some aphasia which makes communication difficult MD complaint: chest pain Onset (ago): hour(s) Pain location: left chest Related Data Home Medications Medication Instructions Recorded Confirmed Saccharomyces boulardii 250 mg 250 mg PO BID 05/13/21 04/13/22 capsule (Florastor) aluminum-mag hydroxide-simethicone 30 ml PO Q6H PRN GERD 05/13/21 04/13/22 400 mg-400 mg-40 mg/5 mL oral susp (Mylanta Maximum Strength) apixaban 5 mg tablet (Eliquis) 5 mg PO BID 05/13/21 05/13/21 atorvastatin 80 mg tablet 80 mg PO BEDTIME 05/13/21 04/13/22 baclofen 10 mg tablet 20 mg PO TID@0800,1400,2000 05/13/21 04/13/22 escitalopram oxalate 5 mg tablet 20 mg PO DAILY 05/13/21 04/13/22 lisinopril 5 mg tablet 5 mg PO DAILY 05/13/21 04/13/22 melatonin 3 mg tablet 9 mg PO BEDTIME 05/13/21 04/13/22 metoprolol tartrate 25 mg tablet 25 mg PO BID 05/13/21 04/13/22 multivitamin 1 tab PO DAILY 05/13/21 04/13/22 sennosides 8.6 mg tablet (senna) 17.2 mg PO BEDTIME PRN Constipation 05/13/21 04/13/22 sennosides 8.6 mg-docusate sodium 2 tab PO BID PRN Constipation 05/13/21 04/13/22 50 mg tablet (Senna Plus) acetaminophen 325 mg tablet 650 mg PO Q6H PRN Pain 04/13/22 04/13/22 aripiprazole 5 mg tablet (Abilify) 5 mg PO DAILY 04/13/22 04/13/22 bisacodyl 10 mg rectal suppository 10 mg OK DAILY PRN Constipation 04/13/22 04/13/22 magnesium hydroxide 400 mg/5 mL 30 ml PO DAILY PRN Constipation 04/13/22 04/13/22 oral suspension (Milk of Magnesia) sodium phosphates 19 gram-7 118 ml OK DAILY PRN Constipation 04/13/22 04/13/22 gram/118 mL enema (Fleet Enema) warfarin 2.5 mg tablet 4.5 mg PO SUMOTUWETHFR@1800 04/13/22 04/13/22 warfarin 4 mg tablet 4 mg PO SA@1800 04/13/22 04/13/22 Previous Rx's Medication Instructions Recorded levetiracetam 500 mg tablet 500 mg PO BID #60 tabs 01/05/21 (Keppra) Allergies Allergy/AdvReac Type Severity Reaction Status Date / Time No Known Allergies Allergy Verified 12/06/20 19:26 Review of Systems Review of Systems: Yes Unobtainable due to mental status Neurologic: Denies Sensory deficit (Neuro) [facility] Past Medical History Medical History CVA (cerebral vascular accident) Depression GERD (gastroesophageal reflux disease) HTN (hypertension) Social History Social History Alcohol intake: never Patient Tobacco Use Status: Never used Tobacco Advance Directives: Yes Advance Directives on File: Yes Advance Directives Date on File: 04/13/22 Physical Exam Vital Signs: Vital Signs: Last Vital Signs Temp 97.9 F 04/13/22 19:58 Pulse 67 04/13/22 19:58 Resp 13 04/13/22 19:58 BP 125/66 04/13/22 19:58 Pulse Ox 95 04/13/22 19:58 O2 Del Method 04/13/22 19:58 BMI result Body Mass Index 27.3 Const: Other: chronically ill Orientation/consciousness: oriented to person Limitations: altered mental status and other limitations (aphasia) HEENT: Head: Yes normal to inspection Ears: external ears normal General nose exam: Normal external nose present Mouth: Normal oral and palatal mucosa present and oropharynx normal Throat: Yes posterior oropharynx normal Eyes: Other: blind, bilateral cataracts Neck: Other: supple Neck: Yes normal visual inspection Chest: Chest palpation & inspection: normal inspection of the chest Resp: Auscultation: clear to auscultation bilaterally Cardio: Jugular venous distension: no JVD Rate: regular rate Rhythm: regular rhythm Heart sounds: S1 normal heart sound present and S2 normal heart sound present GI: Inspection: Yes normal to inspection Palpation (GI): Soft to palpation, nontender and No hepatosplenomegaly present Auscultation: normal bowel sounds : General: Yes no CVA tenderness Back/Spine/Pelvis: Back: no CVA tenderness Skin: General skin exam: no rashes or lesions noted Neuro: General: oriented to person Motor exam (neuro): Other motor observations present (left arm atrophy) Sensory Exam: No Sensory deficit (Neuro) Extrem: General: Yes normal to inspection Psych: Other: flat affect Course Reevaluation(s) Reevaluation #1: no ischemia on ekg, repeat troponin negative, xray normal, will dc home Time: 21:40 Medical Decision Making Differential Diagnosis Differential Diagnoses: The differential diagnosis associated with the presentation includes (cardiac ischemia, chostrochondritis, anxiety, pneumonia) Admission/Observation Consideration of admission/observation: Escalation of care including admission/observation considered (in a 56 yo male with chest pain, history of stroke, htn, DVT, afib, admission was considered) Lab Data MDM Lab Attestation statement: I reviewed the patient's lab results. 04/13/22 18:36 04/13/22 18:36 Labs: Lab Results 04/13/22 04/13/22 04/13/22 Range/Units 18:36 18:36 18:36 WBC 7.4 (4.8-10.8) X10*3/uL RBC 4.69 (4.60-5.80) X10*6/uL Hgb 14.2 (14.0-18.0) g/dl Hct 44.8 (42.0-52.0) % MCV 95.5 (80.0-98.0) fL MCH 30.3 (27.0-33.0) pg MCHC 31.7 (31.0-36.0) g/dl RDW 14.3 (11.0-16.0) % Plt Count 174 (160-400) X10*3/uL MPV 11.3 (9.4-12.4) fL Immature Gran % (Auto) 0.4 (0.0-0.4) % Neut % (Auto) 64.6 (45-73) % Lymph % (Auto) 23.8 (20-40) % [place] % (Auto) 8.5 (2-11) % Eos % (Auto) 2.0 (0-4) % Baso % (Auto) 0.7 (0-2) % Lymph # (Auto) 1.8 (1.2-4.9) X10*3/uL [place] # (Auto) 0.6 (0.1-1.2) X10*3/uL Eos # (Auto) 0.2 (0.0-0.4) X10*3/uL Baso # (Auto) 0.1 (0.0-0.2) X10*3/uL Abs Immat Gran (auto) 0.03 (0.00-0.03) X10*3/uL Absolute Neuts (auto) 4.8 (2.0-8.3) x10*3/uL Absolute Nucleated RBC 0.000 (0.0-0.012) X10*3/uL Nucleated RBC % (auto) 0.0 (0.0-0.2) /100WBC Sodium 144 (135-145) mmol/L Potassium 4.4 (3.3-5.1) mmol/L Chloride 110 H (96-108) mmol/L Carbon Dioxide 25 (22-29) mmol/L Anion Gap 13 (12-20) BUN 17 H (9-16) mg/dL Creatinine 0.98 (0.5-1.4) mg/dL Estim Creat Clear Calc 83.3 Estimated GFR > 60 Random Glucose 81 (60-115) mg/dL Calcium 8.3 L D (8.4-10.2) mg/dL Troponin I High Sens 4.5 (<3.5-35.0) ng/L 04/13/22 Range/Units 20:54 WBC (4.8-10.8) X10*3/uL RBC (4.60-5.80) X10*6/uL Hgb (14.0-18.0) g/dl Hct (42.0-52.0) % MCV (80.0-98.0) fL MCH (27.0-33.0) pg MCHC (31.0-36.0) g/dl RDW (11.0-16.0) % Plt Count (160-400) X10*3/uL MPV (9.4-12.4) fL Immature Gran % (Auto) (0.0-0.4) % Neut % (Auto) (45-73) % Lymph % (Auto) (20-40) % [place] % (Auto) (2-11) % Eos % (Auto) (0-4) % Baso % (Auto) (0-2) % Lymph # (Auto) (1.2-4.9) X10*3/uL [place] # (Auto) (0.1-1.2) X10*3/uL Eos # (Auto) (0.0-0.4) X10*3/uL Baso # (Auto) (0.0-0.2) X10*3/uL Abs Immat Gran (auto) (0.00-0.03) X10*3/uL Absolute Neuts (auto) (2.0-8.3) x10*3/uL Absolute Nucleated RBC (0.0-0.012) X10*3/uL Nucleated RBC % (auto) (0.0-0.2) /100WBC Sodium (135-145) mmol/L Potassium (3.3-5.1) mmol/L Chloride (96-108) mmol/L Carbon Dioxide (22-29) mmol/L Anion Gap (12-20) BUN (9-16) mg/dL Creatinine (0.5-1.4) mg/dL Estim Creat Clear Calc Estimated GFR Random Glucose (60-115) mg/dL Calcium (8.4-10.2) mg/dL Troponin I High Sens 5.6 (<3.5-35.0) ng/L Independent Interpretation I performed an independent interpretation of an: EKG (sinus 70, no st or twave changes) and Plain X-Ray (no infiltrate, valve replacement, stent in aorta) Discharge Plan Discharge Clinical Impression: Chest pain Patient Disposition: Home, Self-Care Instructions: Chest Pain (ED) Prescriptions: No Action levetiracetam [Keppra] 500 mg tablet 500 mg PO BID Qty: 60 0RF acetaminophen 325 mg Tablet 650 mg PO Q6H PRN (Reason: Pain) warfarin 2.5 mg Tablet 4.5 mg PO SUMOTUWETHFR@1800 warfarin 4 mg Tablet 4 mg PO SA@1800 magnesium hydroxide [Milk of Magnesia] 400 mg/5 mL Suspension 30 ml PO DAILY PRN (Reason: Constipation) Rx Instructions: for no BM after 3 days bisacodyl 10 mg Suppository 10 mg OK DAILY PRN (Reason: Constipation) Fleet Enema 19-7 gram/118 mL Enema 118 ml OK DAILY PRN (Reason: Constipation) Rx Instructions: when dulcolax not effective aripiprazole [Abilify] 5 mg Tablet 5 mg PO DAILY multivitamin Tablet 1 tab PO DAILY atorvastatin 80 mg Tablet 80 mg PO BEDTIME sennosides [senna] 8.6 mg Tablet 17.2 mg PO BEDTIME PRN (Reason: Constipation) sennosides-docusate sodium [Senna Plus] 8.6-50 mg Tablet 2 tab PO BID PRN (Reason: Constipation) melatonin 3 mg Tablet 9 mg PO BEDTIME baclofen 10 mg Tablet 20 mg PO TID@0800,1400,2000 lisinopril 5 mg Tablet 5 mg PO DAILY alum-mag hydroxide-simeth [Mylanta Maximum Strength] 400-400-40 mg/5 mL Suspension 30 ml PO Q6H PRN (Reason: GERD) Saccharomyces boulardii [Florastor] 250 mg Capsule 250 mg PO BID escitalopram oxalate 5 mg Tablet 20 mg PO DAILY metoprolol tartrate 25 mg Tablet 25 mg PO BID Eliquis 5 mg Tablet 5 mg PO BID Referrals: Sherwin Iraheta MD [Primary Care Provider] - 3 days
[2022-04-13 18:30] VITALS: BP 119/62; PULSE 69; RESP 17; O2SAT 94
[2022-04-13 18:42] LABS: Basophils Absolute Auto 0.1 X10*3/uL (0.0-0.2); Basophils Percent Auto 0.7 % (0-2); Eosinophils Absolute Auto 0.2 X10*3/uL (0.0-0.4); Hematocrit 44.8 % (42.0-52.0); Hemoglobin 14.2 g/dl (14.0-18.0); Imm Gran Abs Auto 0.03 X10*3/uL (0.00-0.03); Imm Gran Pct Auto 0.4 % (0.0-0.4); Lymphocytes Absolute Auto 1.8 X10*3/uL (1.2-4.9); Lymphocytes Percent Auto 23.8 % (20-40); MANUAL DIFF FLAG NO; Mean Corpuscular HGB Conc 31.7 g/dl (31.0-36.0); Mean Corpuscular Hemoglobin 30.3 pg (27.0-33.0); Mean Corpuscular Volume 95.5 fL (80.0-98.0); Mean Platelet Volume 11.3 fL (9.4-12.4); Monocytes Absolute Auto 0.6 X10*3/uL (0.1-1.2); Monocytes Percent Auto 8.5 % (2-11); Neutrophils Absolute Auto 4.8 x10*3/uL (2.0-8.3); Neutrophils Percent Auto 64.6 % (45-73); Platelet Count 174 X10*3/uL (160-400); Red Blood Count 4.69 X10*6/uL (4.60-5.80); Red Cell Distribution Width 14.3 % (11.0-16.0); White Blood Count 7.4 X10*3/uL (4.8-10.8)
[2022-04-13 19:07] LABS: Troponin-I High Sensitivity 4.5 ng/L (<3.5-35.0)
[2022-04-13 19:10] LABS: Anion Gap 13 (12-20); Blood Urea Nitrogen 17 mg/dL (9-16); Calcium 8.3 mg/dL (8.4-10.2); Carbon Dioxide 25 mmol/L (22-29); Chloride 110 mmol/L (96-108); Creatinine Clr Calc Pharmacy 83.3; Estimated Glomerular Filt Rate > 60; Glucose Random 81 mg/dL (60-115); Potassium 4.4 mmol/L (3.3-5.1); Sodium 144 mmol/L (135-145)
--- NOTE | 2022-04-13 19:21 | PHA.MEDREC ---
Pharmacy Consult ? Medication Reconciliation Pharmacy has completed the medication reconciliation. Pt with list from [facility]
[2022-04-13 19:58] VITALS: BP 125/66; PULSE 67; RESP 13; TEMP 36.6; O2SAT 95
[2022-04-13 21:22] LABS: Troponin-I High Sensitivity 5.6 ng/L (<3.5-35.0)
--- NOTE | 2022-04-13 22:45 | PC.NURSE ---
report given to RN at [facility] - patient to be transported back to facility awaiting ems transport
--- NOTE | 2022-04-13 22:52 | MHC.EDTECH ---
Call out to [facility] @[phone] regarding bls transport back to [facility] ETA of within the hour for transport back to facility
== END 2022-04-13 23:32 | disposition home or self-care (01) ==
PROVIDERS: Emergency Provider Emergency Medicine; PCP Family Medicine
DX: R07.89 Other chest pain (principal); Z86.73 Personal history of transient ischemic attack (TIA), and cerebral infarction without residual deficits; Z79.899 Other long term (current) drug therapy; Z79.01 Long term (current) use of anticoagulants
CPT/HCPCS: 36415; 71045; 80048; 84484; 85025; 93005; 99283; 99284

== ENCOUNTER 2023-01-13 19:01 | Emergency (ER) | payer MEDICARE, MEDICAID, SELFPAY ==
--- NOTE | 2023-01-13 | ECG_ITS ---
Test Reason : HYPOTENSION Blood Pressure : / mmHG Vent. Rate : 068 BPM Atrial Rate : 068 BPM P-R Int : 122 ms QRS Dur : 090 ms QT Int : 380 ms P-R-T Axes : 064 -51 054 degrees QTc Int : 404 ms Normal sinus rhythm Left anterior fascicular block Abnormal ECG When compared with ECG of 13-APR-2022 18:07, No significant changes seen Referred By: Generic ED Physician Electronically Signed By:MARIALUISA BARROW MD
--- NOTE | ~2023-01-13 | CT_ITS ---
EXAMINATION: CT HEAD WITHOUT CONTRAST CT CERVICAL SPINE WITHOUT CONTRAST CLINICAL INFORMATION: Fall. Blood thinners. COMPARISON: CT and cervical spine from 12/06/2020. TECHNIQUE: Contiguous axial imaging was performed from the skull base to vertex without intravenous administration of contrast. Contiguous axial imaging was performed from the upper chest through the skull base without intravenous administration of contrast. Coronal and sagittal reformats were obtained at the acquisition workstation. This CT examination was performed using dose optimization techniques as appropriate, variously including the following: *Automated exposure control. *Adjustment of mA and/or kV according to patient size (this includes techniques or standardized protocols for targeted exams where dose is matched to indication/reason for exam; i.e. extremities or head). *Use of iterative reconstruction technique. DLP: 1086 mGy-cm FINDINGS: Head: There is chronic encephalomalacia within the left MCA territory (including the left frontal, parietal, and temporal lobes as well as the left insula and lentiform nucleus) with associated volume loss. No additional loss of hightower-white matter differentiation. No evidence of acute intracranial hemorrhage. Scattered and partially confluent hypoattenuation in the periventricular and deep white matter are consistent with moderate microangiopathy. Wallerian degeneration in the left pyramidal tract. Ex vacuo dilatation of the left lateral ventricle. Otherwise, proportional prominence of the ventricles and sulcal spaces without evidence of obstructive hydrocephalus. No abnormal mass effect or midline shift. No extra-axial fluid collections. No acute soft tissue or osseous abnormalities. The mastoid air cells and visualized paranasal sinuses are clear. Left-sided scleral buckling. Bilateral lens extractions. Chronic calcification of the left-sided choroid/retina. Chronic hyperattenuating material within the left-sided globe. There is a small volume of blood products along the posterior chamber of the right globe. Cervical Spine: The atlantooccipital and atlantoaxial articulations remain well aligned. Moderate left convex curvature of the cervical spine. Reversal the normal cervical lordosis centered on C4-C5. Mild degenerative retrolisthesis of C4 on C5. Otherwise, there is anatomic alignment of the vertebral bodies and posterior elements. No evidence of acute fracture or subluxation. The vertebral body heights are maintained. Advanced degenerative disc disease at C4-C5. Moderate degenerative disc disease at C3-C4 and C4-C5 C6. Facet and uncovertebral joint arthropathy leads to osseous encroachment on the neural foramina from C3-C6. There is no prevertebral soft tissue swelling. Partially visualized stenting of the aortic arch. Changes of prior left subclavian-bicarotid bypass. The thyroid gland and remaining cervical soft tissues are within normal limits. The lung apices demonstrate no abnormalities. CT/CT cervical spine wo IV con IMPRESSION: 1. No evidence of acute intracranial hemorrhage or edematous territorial infarction. 2. Chronic encephalomalacia of the left MCA territory. Moderate underlying microangiopathy and generalized cerebral volume loss. 3. No evidence of acute fracture or traumatic subluxation of the cervical spine. Moderate multilevel degenerative spondyloarthropathy of the cervical spine.
[2023-01-13 19:06] VITALS: BP 164/94; PULSE 65; O2SAT 96
[2023-01-13 19:07] VITALS: BP 73/47; PULSE 69; RESP 14; TEMP 36.8; O2SAT 95; BMI 28.2
[2023-01-13] MEDS: 0.9 % Sodium Chloride 1,000 ML 999 ML IV (19:07)
[2023-01-13 19:30] LABS: MANUAL DIFF FLAG NO
[2023-01-13 19:31] LABS: Basophils Percent Auto 0.5 % (0-2); Eosinophils Absolute Auto 0.2 X10*3/uL (0.0-0.4); Eosinophils Percent Auto 2.6 % (0-4); Hemoglobin 12.1 g/dl (14.0-18.0); Imm Gran Abs Auto 0.03 X10*3/uL (0.00-0.03); Imm Gran Pct Auto 0.5 % (0.0-0.4); Lymphocytes Absolute Auto 1.3 X10*3/uL (1.2-4.9); Lymphocytes Percent Auto 22.2 % (20-40); Mean Corpuscular Hemoglobin 29.4 pg (27.0-33.0); Mean Corpuscular Volume 94.7 fL (80.0-98.0); Mean Platelet Volume 10.8 fL (9.4-12.4); Monocytes Absolute Auto 0.5 X10*3/uL (0.1-1.2); Monocytes Percent Auto 8.4 % (2-11); Neutrophils Absolute Auto 3.8 x10*3/uL (2.0-8.3); Neutrophils Percent Auto 65.8 % (45-73); Platelet Count 222 X10*3/uL (160-400); Red Blood Count 4.12 X10*6/uL (4.60-5.80); Red Cell Distribution Width 14.4 % (11.0-16.0); White Blood Count 5.8 X10*3/uL (4.8-10.8)
--- NOTE | 2023-01-13 19:49 | PC.NURSE ---
[facility] pt was in dining room when he fell forward out of his chair. this was an unwitnessed fall. they found him on the floor holding his head. at baseline pt is reportedly confused and forgetful so was not able to state what happened. pt is known to have low B/P however this evening his systolic was 110 so they held his evening dose of midodrine. pt is on Coumadin 5mg regularly however this has been on hold since yesterday due to elevated PT/INR.
[2023-01-13 19:50] LABS: Alanine Aminotransferase 30 U/L (0-40); Albumin Level 3.8 g/dL (3.5-5.0); Alkaline Phosphatase 105 U/L (39-117); Anion Gap 10 (12-20); Aspartate Amino Transferase 26 U/L (5-37); Bilirubin Total 0.5 mg/dL (0.0-1.0); Blood Urea Nitrogen 17 mg/dL (9-16); Carbon Dioxide 29 mmol/L (22-29); Chloride 104 mmol/L (96-108); Creatinine Clr Calc Pharmacy 99.2; Estimated Glomerular Filt Rate > 60; Glucose Random 92 mg/dL (60-115); Sodium 139 mmol/L (135-145); Total Protein 7.4 g/dL (6.5-8.0)
--- NOTE | 2023-01-13 20:19 | PC.NURSE ---
BP 102/41 after NS 1L
[2023-01-13] MEDS: Midodrine HCl 5 MG TABLET PO (20:20)
[2023-01-13 20:26] VITALS: BP 107/43; PULSE 75; RESP 16; TEMP 36.4; O2SAT 97
--- NOTE | 2023-01-13 20:55 | ED.FALL ---
HPI - Fall General Chief Complaint: Fall Stated Complaint: FALL W/ HEADSTRIKE, +THINNERS, -LOC Time Seen by Provider: 01/13/23 19:31 Source: patient and EMS Mode of arrival: EMS History of Present Illness HPI Narrative: This is a 57-year-old male brought in from [facility] after they report an unwitnessed fall or patient tipped forward and struck his head. Patient has a history of CVA, bilateral blindness, and right-sided deficits secondary to CVA. Patient is on chronic anticoagulation. Related Data Home Medications Medication Instructions Recorded Confirmed Saccharomyces boulardii 250 mg 250 mg PO BID 05/13/21 04/13/22 capsule (Florastor) aluminum-mag hydroxide-simethicone 30 ml PO Q6H PRN GERD 05/13/21 04/13/22 400 mg-400 mg-40 mg/5 mL oral susp (Mylanta Maximum Strength) apixaban 5 mg tablet (Eliquis) 5 mg PO BID 05/13/21 05/13/21 atorvastatin 80 mg tablet 80 mg PO BEDTIME 05/13/21 04/13/22 baclofen 10 mg tablet 20 mg PO TID@0800,1400,2000 05/13/21 04/13/22 escitalopram oxalate 5 mg tablet 20 mg PO DAILY 05/13/21 04/13/22 lisinopril 5 mg tablet 5 mg PO DAILY 05/13/21 04/13/22 melatonin 3 mg tablet 9 mg PO BEDTIME 05/13/21 04/13/22 metoprolol tartrate 25 mg tablet 25 mg PO BID 05/13/21 04/13/22 multivitamin 1 tab PO DAILY 05/13/21 04/13/22 sennosides 8.6 mg tablet (senna) 17.2 mg PO BEDTIME PRN Constipation 05/13/21 04/13/22 sennosides 8.6 mg-docusate sodium 2 tab PO BID PRN Constipation 05/13/21 04/13/22 50 mg tablet (Senna Plus) acetaminophen 325 mg tablet 650 mg PO Q6H PRN Pain 04/13/22 04/13/22 aripiprazole 5 mg tablet (Abilify) 5 mg PO DAILY 04/13/22 04/13/22 bisacodyl 10 mg rectal suppository 10 mg IN DAILY PRN Constipation 04/13/22 04/13/22 magnesium hydroxide 400 mg/5 mL 30 ml PO DAILY PRN Constipation 04/13/22 04/13/22 oral suspension (Milk of Magnesia) sodium phosphates 19 gram-7 118 ml IN DAILY PRN Constipation 04/13/22 04/13/22 gram/118 mL enema (Fleet Enema) warfarin 2.5 mg tablet 4.5 mg PO SUMOTUWETHFR@1800 04/13/22 04/13/22 warfarin 4 mg tablet 4 mg PO SA@1800 04/13/22 04/13/22 Previous Rx's Medication Instructions Recorded levetiracetam 500 mg tablet 500 mg PO BID #60 tabs 01/05/21 (Keppra) Allergies Allergy/AdvReac Type Severity Reaction Status Date / Time No Known Allergies Allergy Verified 01/13/23 19:34 Review of Systems Review of Systems: Pertinent positives and negatives as stated in HPI [facility] Past Medical History Source: nursing notes reviewed Medical History GERD (gastroesophageal reflux disease) Depression HTN (hypertension) CVA (cerebral vascular accident) Social History Social History Alcohol intake: never Patient Tobacco Use Status: Never used Tobacco Smoked in Last 30 Days: No Use of substances other than those prescribed or required for medical reasons: No Advance Directives: Yes Advance Directives on File: Yes Advance Directives Date on File: 04/13/22 Physical Exam Vital Signs: Vital Signs: Last Vital Signs Temp 97.6 F 01/13/23 20:26 Pulse 78 01/13/23 21:54 Resp 14 01/13/23 21:54 BP 81/52 L 01/13/23 21:54 Pulse Ox 95 01/13/23 21:54 O2 Del Method Room Air 01/13/23 21:54 BMI result Body Mass Index 28.2 VITAL SIGNS: Reviewed. GENERAL: Well developed, well nourished, in no acute distress. HEAD: Normocephalic/atraumatic, EYES: Patient is blind in both eyes with milky white opacity over pupils and iris EARS: Ext canals without abnormality NOSE: Nares patent bilateral OROPHARYNX: no oral lesions noted, posterior pharynx clear NECK: Supple, no adenopathy LUNGS: Normal breath sounds. No adventitious sounds or accessory muscle use. SpO2<97> CARDIOVASCULAR: Regular rate and rhythm without noted murmurs ABDOMEN: Soft, non-tender, non-distended with bowel sounds. MUSCULOSKELETAL: No tenderness, deformities, or effusions noted on gross inspection. EXTREMITIES: No cyanosis, clubbing or edema. SKIN: Inspection of the skin reveals no rashes NEUROLOGIC: Alert and oriented x 2. Strength and sensation to light touch were grossly intact x 2, significant right-sided deficits. Medications Administered Discontinued Medications Generic Name Dose Route Start Last Admin Trade Name Freq PRN Reason Stop Dose Admin Sodium Chloride 1,000 mls @ 999 mls/hr 01/13/23 19:07 01/13/23 20:00 Ns IV 01/13/23 20:07 Infused .Q1H1M MICHAEL Infusion Midodrine 5 mg 01/13/23 20:13 01/13/23 20:20 Midodrine Hcl 5 Mg Tablet PO 01/13/23 20:14 5 mg ONCE ONE Administration Medical Decision Making Medical Decision Making [facility] Narrative: 57-year-old male with history and clinical presentation, DDX: Intracranial hemorrhage/neck fractures/subluxation, possible seizure. Patient noted to be hypotensive on arrival, after reviewing all documentation and obtaining collateral information from the facility he did not receive his midodrine this evening. Patient is communicative and is otherwise answering questions appropriately, I see no injuries to the front of the head where staff states that patient fell. I reviewed all investigations and hematologic indices are negative for leukocytosis or left shift, there is a normocytic anemia and no thrombocytopenia. Patient's coagulation studies are reflective of chronic anticoagulation leads use. Chemistry indices do not demonstrated any [place] and there is no electrolyte or liver enzyme derangements. Urinalysis is negative for UTI or hematuria. CT of the head is negative for acute intracranial hemorrhage or mass effect and only shows chronic changes from left MCA CVA history. CT of the cervical spine is without fracture or subluxation. Differential Diagnosis Differential Diagnoses: The differential diagnosis associated with the presentation includes Please see the discussion above Admission/Observation Consideration of admission/observation: Escalation of care including admission/observation considered Please see the discussion above Lab Data [facility] Lab Attestation statement: I reviewed the patient's lab results. Please see the discussion above 01/13/23 19:26 01/13/23 19:26 Labs: Lab Results 01/13/23 01/13/23 Range/Units 19:26 22:06 WBC 5.8 (4.8-10.8) X10*3/uL RBC 4.12 L (4.60-5.80) X10*6/uL Hgb 12.1 L (14.0-18.0) g/dl Hct 39.0 L (42.0-52.0) % MCV 94.7 (80.0-98.0) fL MCH 29.4 (27.0-33.0) pg MCHC 31.0 (31.0-36.0) g/dl RDW 14.4 (11.0-16.0) % Plt Count 222 D (160-400) X10*3/uL MPV 10.8 (9.4-12.4) fL Immature Gran % (Auto) 0.5 H (0.0-0.4) % Neut % (Auto) 65.8 (45-73) % Lymph % (Auto) 22.2 (20-40) % [place] % (Auto) 8.4 (2-11) % Eos % (Auto) 2.6 (0-4) % Baso % (Auto) 0.5 (0-2) % Lymph # (Auto) 1.3 (1.2-4.9) X10*3/uL [place] # (Auto) 0.5 (0.1-1.2) X10*3/uL Eos # (Auto) 0.2 (0.0-0.4) X10*3/uL Baso # (Auto) 0.0 (0.0-0.2) X10*3/uL Abs Immat Gran (auto) 0.03 (0.00-0.03) X10*3/uL Absolute Neuts (auto) 3.8 (2.0-8.3) x10*3/uL Absolute Nucleated RBC 0.000 (0.0-0.012) X10*3/uL Nucleated RBC % (auto) 0.0 (0.0-0.2) /100WBC PT 22.8 H (11.1-13.3) SEC INR 1.9 H (0.9-1.1) APTT 42.7 H (26.0-36.4) SEC Sodium 139 (135-145) mmol/L Potassium 4.0 (3.3-5.1) mmol/L Chloride 104 (96-108) mmol/L Carbon Dioxide 29 (22-29) mmol/L Anion Gap 10 L (12-20) BUN 17 H (9-16) mg/dL Creatinine 0.86 (0.5-1.4) mg/dL Estim Creat Clear Calc 99.2 Estimated GFR > 60 Random Glucose 92 (60-115) mg/dL Calcium 9.0 D (8.4-10.2) mg/dL Total Bilirubin 0.5 (0.0-1.0) mg/dL AST 26 (5-37) U/L ALT 30 (0-40) U/L Alkaline Phosphatase 105 (39-117) U/L Total Protein 7.4 (6.5-8.0) g/dL Albumin 3.8 (3.5-5.0) g/dL Urine Color Yellow Urine Appearance Clear Urine pH 7.5 (5.0-9.0) Ur Specific [place] <= 1.005 (1.005-1.025) Urine Protein Negative (Neg-Trace) mg/dL Urine Glucose (UA) Negative (Negative) mg/dL Urine Ketones Negative (Negative) mg/dL Urine Blood Moderate (2+) H (Negative) Urine Nitrite Negative (Negative) Ur Leukocyte Esterase Negative (Negative) Urine RBC 0-2 (0-2) /HPF Urine WBC 0-5 (0-5) /HPF Ur Squamous Epith Cells 0-2 (0-2) /HPF Urine Bacteria None Seen (None Seen) Hyaline Casts 0-2 (0-2) /LPF Independent Interpretation I performed an independent interpretation of an: EKG Interpretation: Normal sinus rhythm, HR-68, no STEMI, IN/QRS/QTC is within normal limits. Radiology Impression Discussion of test interpretation with radiology: I have reviewed the radiologist's reading. Radiologist Impression: Please see the discussion above Chronic Conditions Patient?s care impacted by: Other Chronic anticoagulation, seizures Critical Care Time Critical Care Time Critical Care Time: Yes Total Critical Care Time: 45 Attestation: I personally attest to this time spent taking care of the patient. Discharge Plan Discharge Clinical Impression: Fall Patient Disposition: Xfer Other Instructions: Fall Prevention for Older Adults (ED) Additional Instructions: 1. Resume all home medications as prescribed. 2. Follow-up with primary care provider on Sunday morning. Return to the ER for any worsening symptoms. Prescriptions: No Action levetiracetam [Keppra] 500 mg tablet 500 mg PO BID Qty: 60 0RF acetaminophen 325 mg Tablet 650 mg PO Q6H PRN (Reason: Pain) warfarin 2.5 mg Tablet 4.5 mg PO SUMOTUWETHFR@1800 warfarin 4 mg Tablet 4 mg PO SA@1800 magnesium hydroxide [Milk of Magnesia] 400 mg/5 mL Suspension 30 ml PO DAILY PRN (Reason: Constipation) Rx Instructions: for no BM after 3 days bisacodyl 10 mg Suppository 10 mg IN DAILY PRN (Reason: Constipation) Fleet Enema 19-7 gram/118 mL Enema 118 ml IN DAILY PRN (Reason: Constipation) Rx Instructions: when dulcolax not effective aripiprazole [Abilify] 5 mg Tablet 5 mg PO DAILY multivitamin Tablet 1 tab PO DAILY atorvastatin 80 mg Tablet 80 mg PO BEDTIME sennosides [senna] 8.6 mg Tablet 17.2 mg PO BEDTIME PRN (Reason: Constipation) sennosides-docusate sodium [Senna Plus] 8.6-50 mg Tablet 2 tab PO BID PRN (Reason: Constipation) melatonin 3 mg Tablet 9 mg PO BEDTIME baclofen 10 mg Tablet 20 mg PO TID@0800,1400,2000 lisinopril 5 mg Tablet 5 mg PO DAILY alum-mag hydroxide-simeth [Mylanta Maximum Strength] 400-400-40 mg/5 mL Suspension 30 ml PO Q6H PRN (Reason: GERD) Saccharomyces boulardii [Florastor] 250 mg Capsule 250 mg PO BID escitalopram oxalate 5 mg Tablet 20 mg PO DAILY metoprolol tartrate 25 mg Tablet 25 mg PO BID Eliquis 5 mg Tablet 5 mg PO BID
[2023-01-13 21:00] LABS: Partial Thromboplastin Time 42.7 SEC (26.0-36.4)
[2023-01-13 21:53] LABS: INTERNATIONAL NORM RATIO 1.9 (0.9-1.1); Prothrombin Time 22.8 SEC (11.1-13.3)
[2023-01-13 21:54] VITALS: BP 81/52; PULSE 78; RESP 14; O2SAT 95
[2023-01-13 23:23] LABS: Appearance Urine Clear; Color Urine Yellow; Glucose Urine UA Negative (Negative); Leukocyte Esterase Urine Negative (Negative); Nitrite Urine Negative (Negative); PH 7.5 (5.0-9.0); Specific Gravity - Urine <= 1.005 (1.005-1.025); UMIC TRIGGER UACC YES; Urine Blood Moderate (2+) (Negative); Urine Ketones Negative (Negative); Urine Protein Negative (Neg-Trace)
[2023-01-13 23:39] LABS: Bacteria Urine None Seen (None Seen); Hyaline Casts Urine 0-2 /LPF (0-2); RBC Urine 0-2 /HPF (0-2); Squamous Epithelial Cell Urine 0-2 /HPF (0-2); WBC Urine 0-5 /HPF (0-5)
--- NOTE | 2023-01-13 23:48 | MHC.EDTECH ---
call out to [facility] @2316 to book transport back to [facility] eta of 0100 was given by Santos from [facility]
== END 2023-01-14 01:15 | disposition home or self-care (01) ==
PROVIDERS: Emergency Provider Student in an Organized Health Care Education/Training Program
DX: Z04.3 Encounter for examination and observation following other accident (principal); Z91.81 History of falling; I95.9 Hypotension, unspecified; I10 Essential (primary) hypertension; I69.351 Hemiplegia and hemiparesis following cerebral infarction affecting right dominant side; Z79.01 Long term (current) use of anticoagulants; Z79.899 Other long term (current) drug therapy
CPT/HCPCS: 36415; 51701; 70450; 72125; 80053; 81001; 81003; 85025; 85610; 85730; 93005; 96360; 99285

== ENCOUNTER 2023-01-15 10:30 | Emergency (ER) | payer MEDICARE, MEDICAID, SELFPAY ==
[2023-01-15] VITALS (8 sets, daily range): BP systolic 80–150; BP diastolic 48–67; PULSE 73–88; RESP 11–18; TEMP 36.6–36.8; O2SAT 97–100; BMI 24.4
--- NOTE | ~2023-01-15 | CT_ITS ---
EXAMINATION: CT HEAD WITHOUT CONTRAST CLINICAL INFORMATION: Headache. COMPARISON: Head CT 01/13/2023. TECHNIQUE: Contiguous axial imaging was performed from the skull base to vertex without intravenous administration of contrast. This CT examination was performed using dose optimization techniques as appropriate, variously including the following: *Automated exposure control *Adjustment of mA and/or kV according to patient size (this includes techniques or standardized protocols for targeted exams where dose is matched to indication/reason for exam; i.e. extremities or head) *Use of iterative reconstruction technique DLP: 729 mGy-cm. FINDINGS: There is redemonstration of a large infarct with the left middle cerebral artery vascular territory involving the parietal lobe, frontal lobe, temporal lobe, insula, and basal ganglia. There is Wallerian degeneration along the left-sided corticospinal tract. Additional chronic infarction seen within the left superior cerebellum. There is no intracranial hemorrhage, extra-axial collection, or acute infarction. There is chronic ex vacuo dilatation of the left lateral ventricle. No hydrocephalus is seen. The extracranial structures are within normal limits. The left globe demonstrate changes related to right and approximately in addition to scattered dystrophic calcifications. The right lobe also demonstrates a shunt in contour with areas of hyperdensity posteriorly, similar compared with prior exams. CT/CT head/brain wo IV con IMPRESSION: No acute intracranial abnormality. Sequela of chronic left MCA infarction again demonstrated. No acute abnormality.
--- NOTE | ~2023-01-15 | XR_ITS ---
EXAMINATION: XR CHEST CLINICAL INFORMATION: Cough. Right dominant is contracted COMPARISON: None available. TECHNIQUE: Frontal view of the chest was obtained. FINDINGS: Lungs are well-expanded and clear. The heart size and pulmonary vascularity is normal. There is descending thoracic aortic stent and median sternotomy sutures from previous insertion. No gross bony abnormality XR/XR chest 1V IMPRESSION: No acute cardiopulmonary process seen.
--- NOTE | 2023-01-15 10:44 | ED.GENADULT ---
HPI - General Adult General Chief complaint: Weakness Stated complaint: LOW BP 117/60 FROM [facility] PER EMS Time Seen by Provider: 01/15/23 10:38 Source: EMS Mode of arrival: EMS History of Present Illness HPI narrative: This is a 57 years old patient intermediate resident with history of right hemiplegia secondary to CVA, history of sepsis, sent here for evaluation of hypotension. There is no reported fever no reported vomiting no reported abdominal pain. To be noted he was seen in ED the night of Jan 13 (2 days ago) the BP was low 81/52 at 21:54 and a 73/47 at 1907. Onset (ago): day(s) (2) Radiation: non-radiation Severity: mild Pain Consistency: constant Relieving factors: none Exacerbating factors: none Associated symptoms: denies other symptoms Related Data Home Medications Medication Instructions Recorded Confirmed Saccharomyces boulardii 250 mg 250 mg PO BID 05/13/21 04/13/22 capsule (Florastor) aluminum-mag hydroxide-simethicone 30 ml PO Q6H PRN GERD 05/13/21 04/13/22 400 mg-400 mg-40 mg/5 mL oral susp (Mylanta Maximum Strength) apixaban 5 mg tablet (Eliquis) 5 mg PO BID 05/13/21 05/13/21 atorvastatin 80 mg tablet 80 mg PO BEDTIME 05/13/21 04/13/22 baclofen 10 mg tablet 20 mg PO TID@0800,1400,2000 05/13/21 04/13/22 escitalopram oxalate 5 mg tablet 20 mg PO DAILY 05/13/21 04/13/22 lisinopril 5 mg tablet 5 mg PO DAILY 05/13/21 04/13/22 melatonin 3 mg tablet 9 mg PO BEDTIME 05/13/21 04/13/22 metoprolol tartrate 25 mg tablet 25 mg PO BID 05/13/21 04/13/22 multivitamin 1 tab PO DAILY 05/13/21 04/13/22 sennosides 8.6 mg tablet (senna) 17.2 mg PO BEDTIME PRN Constipation 05/13/21 04/13/22 sennosides 8.6 mg-docusate sodium 2 tab PO BID PRN Constipation 05/13/21 04/13/22 50 mg tablet (Senna Plus) acetaminophen 325 mg tablet 650 mg PO Q6H PRN Pain 04/13/22 04/13/22 aripiprazole 5 mg tablet (Abilify) 5 mg PO DAILY 04/13/22 04/13/22 bisacodyl 10 mg rectal suppository 10 mg MD DAILY PRN Constipation 04/13/22 04/13/22 magnesium hydroxide 400 mg/5 mL 30 ml PO DAILY PRN Constipation 04/13/22 04/13/22 oral suspension (Milk of Magnesia) sodium phosphates 19 gram-7 118 ml MD DAILY PRN Constipation 04/13/22 04/13/22 gram/118 mL enema (Fleet Enema) warfarin 2.5 mg tablet 4.5 mg PO SUMOTUWETHFR@1800 04/13/22 04/13/22 warfarin 4 mg tablet 4 mg PO SA@1800 04/13/22 04/13/22 Previous Rx's Medication Instructions Recorded levetiracetam 500 mg tablet 500 mg PO BID #60 tabs 01/05/21 (Keppra) Allergies Allergy/AdvReac Type Severity Reaction Status Date / Time No Known Allergies Allergy Verified 01/13/23 19:34 Review of Systems Cardiovascular: Cardiovascular: Reports no additional cardiovascular complaints Respiratory: Respiratory: Reports no additional respiratory complaints [facility] Past Medical History Medical History GERD (gastroesophageal reflux disease) Depression HTN (hypertension) CVA (cerebral vascular accident) Social History Social History Unable to assess alcohol history related to: Unknown and Refusing to respond Alcohol intake: never Patient Tobacco Use Status: Never used Tobacco Smoked in Last 30 Days: No Use of substances other than those prescribed or required for medical reasons: Unable to respond Advance Directives: Yes Advance Directives on File: Yes Advance Directives Date on File: 04/13/22 Physical Exam ED Vital Signs: Vital Signs - 24 hr 01/15/23 10:41 01/15/23 11:13 01/15/23 12:04 Temperature 98.2 F Pulse Rate 88 85 78 Respiratory Rate 16 11 L 18 Blood Pressure 85/58 L 81/48 L 84/62 L Pulse Oximetry 97 100 98 Oxygen Delivery Method Room Air Room Air Room Air 01/15/23 12:18 01/15/23 13:11 01/15/23 13:39 Temperature Pulse Rate 88 85 Respiratory Rate 18 18 Blood Pressure 80/50 L 150/67 H 148/54 H Pulse Oximetry 97 98 Oxygen Delivery Method Room Air Room Air 01/15/23 14:03 Temperature Pulse Rate 80 Respiratory Rate 18 Blood Pressure 137/66 Pulse Oximetry Oxygen Delivery Method BMI result Body Mass Index 24.4 Const General: no acute distress and alert Nutritional Appearance: average body habitus HENMT Head: Yes normal to inspection Mouth: Normal oral and palatal mucosa present 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 Conjunctivae: conjunctivae normal Neck Neck: Yes normal visual inspection Chest Chest palpation & inspection: normal inspection of the chest Resp Effort & Inspection: normal respiratory effort Auscultation: clear to auscultation bilaterally Cardio Jugular venous distension: no JVD Rate: regular rate Rhythm: regular rhythm GI Inspection: Yes normal to inspection Palpation (GI): Soft to palpation, not firm, nontender and no guarding Auscultation: normal bowel sounds Neuro Other: Patient is awake and alert he has old right-sided hemiplegia his right arm is contracted his right leg ulcer is contracted Course Reevaluation(s) Reevaluation #1: much better normotensive labs normal Time: 15:37 Reevaluation #2: I spoke with [facility] staff pt is not ambulatory at baseline bed bound Time: 15:41 Medications Administered Discontinued Medications Generic Name Dose Route Start Last Admin Trade Name Freq PRN Reason Stop Dose Admin Sodium Chloride 1,000 mls @ 999 mls/hr 01/15/23 10:45 01/15/23 12:20 Ns IVCONT 01/15/23 11:45 Infused .Q1H1M MICHAEL Infusion Sodium Chloride 1,000 mls @ 999 mls/hr 01/15/23 10:45 01/15/23 12:20 Ns IVCONT 01/15/23 11:45 Infused .Q1H1M MICHAEL Infusion Sodium Chloride 500 mls @ 500 mls/hr 01/15/23 13:00 01/15/23 14:02 Ns IV 01/15/23 13:59 Infused .Q1H MICHAEL Infusion Midodrine 10 mg 01/15/23 12:28 01/15/23 14:02 Midodrine Hcl 10 Mg Tablet PO 01/15/23 12:29 10 mg ONCE ONE Administration Medical Decision Making Medical Decision Making MDM Narrative: Patient presented to the emergency room with low blood pressure from the intermediate, workup was done lactic acid was normal white count normal no fever, patient has history of low blood pressure in the past, he received the 2.5 L of fluids blood pressure was much better 137/66 as 14:00 plan discharge. Pt is on midodrine because his low BP Differential Diagnosis Differential Diagnoses: The differential diagnosis associated with the presentation includes Sepsis/cardiogenic shock/dehydration Admission/Observation Consideration of admission/observation: Escalation of care including admission/observation considered Lab Data MDM Lab Attestation statement: I reviewed the patient's lab results. 01/15/23 11:09 01/15/23 11:09 Labs: Lab Results 01/15/23 01/15/23 Range/Units 11: 12:30 WBC 5.3 (4.8-10.8) X10*3/uL RBC 3.96 L (4.60-5.80) X10*6/uL Hgb 11.7 L (14.0-18.0) g/dl Hct 37.4 L (42.0-52.0) % MCV 94.4 (80.0-98.0) fL MCH 29.5 (27.0-33.0) pg MCHC 31.3 (31.0-36.0) g/dl RDW 14.2 (11.0-16.0) % Plt Count 200 (160-400) X10*3/uL MPV 11.1 (9.4-12.4) fL Immature Gran % (Auto) 0.4 (0.0-0.4) % Neut % (Auto) 72.1 (45-73) % Lymph % (Auto) 17.9 L (20-40) % [place] % (Auto) 7.5 (2-11) % Eos % (Auto) 1.5 (0-4) % Baso % (Auto) 0.6 (0-2) % Lymph # (Auto) 1.0 L (1.2-4.9) X10*3/uL [place] # (Auto) 0.4 (0.1-1.2) X10*3/uL Eos # (Auto) 0.1 (0.0-0.4) X10*3/uL Baso # (Auto) 0.0 (0.0-0.2) X10*3/uL Abs Immat Gran (auto) 0.02 (0.00-0.03) X10*3/uL Absolute Neuts (auto) 3.8 (2.0-8.3) x10*3/uL Absolute Nucleated RBC 0.000 (0.0-0.012) X10*3/uL Nucleated RBC % (auto) 0.0 (0.0-0.2) /100WBC PT 13.8 H D (11.1-13.3) SEC INR 1.1 (0.9-1.1) APTT 33.3 D (26.0-36.4) SEC Sodium 141 (135-145) mmol/L Potassium 4.0 (3.3-5.1) mmol/L Chloride 109 H (96-108) mmol/L Carbon Dioxide 26 (22-29) mmol/L Anion Gap 10 L (12-20) BUN 12 (9-16) mg/dL Creatinine 0.72 (0.5-1.4) mg/dL Estim Creat Clear Calc 108.3 Estimated GFR > 60 Random Glucose 100 (60-115) mg/dL Lactic Acid 1.3 (0.5-2.0) mmol/L Calcium 8.5 (8.4-10.2) mg/dL Total Bilirubin 0.5 (0.0-1.0) mg/dL AST 28 (5-37) U/L ALT 31 (0-40) U/L Alkaline Phosphatase 101 (39-117) U/L Troponin I High Sens 5.5 (<3.5-35.0) ng/L Total Protein 6.7 (6.5-8.0) g/dL Albumin 3.6 (3.5-5.0) g/dL Urine Color Yellow Urine Appearance Clear Urine pH 7.5 (5.0-9.0) Ur Specific [place] 1.015 (1.005-1.025) Urine Protein Negative (Neg-Trace) mg/dL Urine Glucose (UA) Negative (Negative) mg/dL Urine Ketones Negative (Negative) mg/dL Urine Blood Negative (Negative) Urine Nitrite Negative (Negative) Ur Leukocyte Esterase Negative (Negative) Urine RBC 0-2 (0-2) /HPF Urine WBC 0-5 (0-5) /HPF Ur Squamous Epith Cells 0-2 (0-2) /HPF Urine Bacteria None Seen (None Seen) Hyaline Casts 0-2 (0-2) /LPF Independent Interpretation I performed an independent interpretation of an: CT Scan Interpretation: Normal Radiology Impression Discussion of test interpretation with radiology: I have reviewed the radiologist's reading. Radiologist Impression: There is redemonstration of a large infarct with the left middle cerebral artery vascular territory involving the parietal lobe, frontal lobe, temporal lobe, insula, and basal ganglia. There is Wallerian degeneration along the left-sided corticospinal tract. Additional chronic infarction seen within the left superior cerebellum. There is no intracranial hemorrhage, extra-axial collection, or acute infarction. There is chronic ex vacuo dilatation of the left lateral ventricle. No hydrocephalus is seen. The extracranial structures are within normal limits. The left globe demonstrate changes related to right and approximately in addition to scattered dystrophic calcifications. The right lobe also demonstrates a shunt in contour with areas of hyperdensity posteriorly, similar compared with prior exams. CT/CT head/brain wo IV con IMPRESSION: No acute intracranial abnormality. Sequela of chronic left MCA infarction again demonstrated. No acute abnormality. Dictated By: ROSE MARY BLANKENSHIP MD External Record Review External record reviewed: Inpatient record and Other ([facility] record) Chronic Conditions Patient?s care impacted by: Other (CVA) Critical Care Time Critical Care Time Critical Care Time: Yes Total Critical Care Time: 60 Attestation: low BP Discharge Plan Discharge Clinical Impression: Hypotension Patient Disposition: Xfer [facility] Transfer Details: BACK TO [facility] Instructions: Hypotension (ED) Additional Instructions: All the blood work was normal his blood pressure was better when taken in the right arm , there was no evidence of sepsis Prescriptions: No Action levetiracetam [Keppra] 500 mg tablet 500 mg PO BID Qty: 60 0RF acetaminophen 325 mg Tablet 650 mg PO Q6H PRN (Reason: Pain) warfarin 2.5 mg Tablet 4.5 mg PO SUMOTUWETHFR@1800 warfarin 4 mg Tablet 4 mg PO SA@1800 magnesium hydroxide [Milk of Magnesia] 400 mg/5 mL Suspension 30 ml PO DAILY PRN (Reason: Constipation) Rx Instructions: for no BM after 3 days bisacodyl 10 mg Suppository 10 mg MD DAILY PRN (Reason: Constipation) Fleet Enema 19-7 gram/118 mL Enema 118 ml MD DAILY PRN (Reason: Constipation) Rx Instructions: when dulcolax not effective aripiprazole [Abilify] 5 mg Tablet 5 mg PO DAILY multivitamin Tablet 1 tab PO DAILY atorvastatin 80 mg Tablet 80 mg PO BEDTIME sennosides [senna] 8.6 mg Tablet 17.2 mg PO BEDTIME PRN (Reason: Constipation) sennosides-docusate sodium [Senna Plus] 8.6-50 mg Tablet 2 tab PO BID PRN (Reason: Constipation) melatonin 3 mg Tablet 9 mg PO BEDTIME baclofen 10 mg Tablet 20 mg PO TID@0800,1400,2000 lisinopril 5 mg Tablet 5 mg PO DAILY alum-mag hydroxide-simeth [Mylanta Maximum Strength] 400-400-40 mg/5 mL Suspension 30 ml PO Q6H PRN (Reason: GERD) Saccharomyces boulardii [Florastor] 250 mg Capsule 250 mg PO BID escitalopram oxalate 5 mg Tablet 20 mg PO DAILY metoprolol tartrate 25 mg Tablet 25 mg PO BID Eliquis 5 mg Tablet 5 mg PO BID Referrals: [facility] [Outside] Sherwin Iraheta MD [Primary Care Provider] -
[2023-01-15] MEDS: 0.9 % Sodium Chloride 1,000 ML 999 ML IVCONT ×2 (10:54→11:13)
[2023-01-15 11:13] LABS: MANUAL DIFF FLAG NO
[2023-01-15 11:16] LABS: Basophils Percent Auto 0.6 % (0-2); Eosinophils Absolute Auto 0.1 X10*3/uL (0.0-0.4); Eosinophils Percent Auto 1.5 % (0-4); Hematocrit 37.4 % (42.0-52.0); Hemoglobin 11.7 g/dl (14.0-18.0); Imm Gran Abs Auto 0.02 X10*3/uL (0.00-0.03); Imm Gran Pct Auto 0.4 % (0.0-0.4); Lymphocytes Percent Auto 17.9 % (20-40); Mean Corpuscular HGB Conc 31.3 g/dl (31.0-36.0); Mean Corpuscular Hemoglobin 29.5 pg (27.0-33.0); Mean Corpuscular Volume 94.4 fL (80.0-98.0); Mean Platelet Volume 11.1 fL (9.4-12.4); Monocytes Absolute Auto 0.4 X10*3/uL (0.1-1.2); Monocytes Percent Auto 7.5 % (2-11); Neutrophils Absolute Auto 3.8 x10*3/uL (2.0-8.3); Neutrophils Percent Auto 72.1 % (45-73); Platelet Count 200 X10*3/uL (160-400); Red Blood Count 3.96 X10*6/uL (4.60-5.80); Red Cell Distribution Width 14.2 % (11.0-16.0); White Blood Count 5.3 X10*3/uL (4.8-10.8)
[2023-01-15 11:25] LABS: Lactic Acid 1.3 mmol/L (0.5-2.0)
[2023-01-15 11:26] LABS: INTERNATIONAL NORM RATIO 1.1 (0.9-1.1); Prothrombin Time 13.8 SEC (11.1-13.3)
[2023-01-15 11:29] LABS: Alanine Aminotransferase 31 U/L (0-40); Albumin Level 3.6 g/dL (3.5-5.0); Alkaline Phosphatase 101 U/L (39-117); Anion Gap 10 (12-20); Aspartate Amino Transferase 28 U/L (5-37); Bilirubin Total 0.5 mg/dL (0.0-1.0); Blood Urea Nitrogen 12 mg/dL (9-16); Calcium 8.5 mg/dL (8.4-10.2); Carbon Dioxide 26 mmol/L (22-29); Chloride 109 mmol/L (96-108); Creatinine Clr Calc Pharmacy 108.3; Estimated Glomerular Filt Rate > 60; Glucose Random 100 mg/dL (60-115); Partial Thromboplastin Time 33.3 SEC (26.0-36.4); Sodium 141 mmol/L (135-145); Total Protein 6.7 g/dL (6.5-8.0)
[2023-01-15 11:36] LABS: Troponin-I High Sensitivity 5.5 ng/L (<3.5-35.0)
[2023-01-15 12:36] LABS: Appearance Urine Clear; Color Urine Yellow; Glucose Urine UA Negative (Negative); Leukocyte Esterase Urine Negative (Negative); Nitrite Urine Negative (Negative); PH 7.5 (5.0-9.0); Specific Gravity - Urine 1.015 (1.005-1.025); Urine Blood Negative (Negative); Urine Ketones Negative (Negative); Urine Protein Negative (Neg-Trace)
[2023-01-15 12:38] LABS: Bacteria Urine None Seen (None Seen); Hyaline Casts Urine 0-2 /LPF (0-2); RBC Urine 0-2 /HPF (0-2); Squamous Epithelial Cell Urine 0-2 /HPF (0-2); WBC Urine 0-5 /HPF (0-5)
[2023-01-15] MEDS: 0.9 % Sodium Chloride 500 ML IV (13:07)
[2023-01-15] MEDS: Midodrine HCl 10 MG TABLET PO (14:02)
== END 2023-01-15 18:30 | disposition skilled nursing facility (03) ==
PROVIDERS: Emergency Provider Emergency Medicine; PCP Family Medicine
DX: I95.9 Hypotension, unspecified (principal); I10 Essential (primary) hypertension; I69.351 Hemiplegia and hemiparesis following cerebral infarction affecting right dominant side; Z79.899 Other long term (current) drug therapy; Z79.01 Long term (current) use of anticoagulants
CPT/HCPCS: 36415; 70450; 71045; 80053; 81001; 83605; 84484; 85025; 85610; 85730; 87040; 96360; 96361; 99284

== ENCOUNTER 2024-09-22 09:18 | Emergency (ER) | payer MEDICARE, MEDICAID, SELFPAY ==
[2024-09-22] VITALS (12 sets, daily range): BP systolic 75–105; BP diastolic 33–80; PULSE 96–114; RESP 16–21; TEMP 36.8–37; O2SAT 93–100; BMI 26.7
--- NOTE | 2024-09-22 | ECG_ITS ---
Test Reason : sepsis Blood Pressure : */* mmHG Vent. Rate : 102 BPM Atrial Rate : 102 BPM P-R Int : 168 ms QRS Dur : 94 ms QT Int : 354 ms P-R-T Axes : * -30 153 degrees QTcB Int : 461 ms Sinus tachycardia Left axis deviation Cannot rule out Anterior infarct , age undetermined T wave abnormality, consider lateral ischemia Abnormal ECG When compared with ECG of 13-Jan-2023 19:27, Vent. rate has increased by 34 bpm Minimal criteria for Anterior infarct are now Present T wave inversion now evident in Lateral leads QT has lengthened Referred By: Generic ED Physician Electronically Signed By: AAMIR PALUMBO MD
--- NOTE | ~2024-09-22 | CT_ITS ---
EXAMINATION: CT HEAD WITHOUT CONTRAST CLINICAL INFORMATION: fall COMPARISON: January 15, 2023 TECHNIQUE: Contiguous axial imaging was performed from the skull base to vertex without intravenous administration of contrast. This CT examination was performed using dose optimization techniques as appropriate, variously including the following: *Automated exposure control *Adjustment of mA and/or kV according to patient size (this includes techniques or standardized protocols for targeted exams where dose is matched to indication/reason for exam; i.e. extremities or head) *Use of iterative reconstruction technique DLP: 684.02 mGy-cm FINDINGS: No acute cortical disruption in the bony calvarium or the skull base. Old traumatic deformity, nasal bones. No acute intracranial hemorrhage, mass effect, midline shift, hydrocephalus or herniation. Macedo-white matter differentiation is normal. There is a large macrocystic encephalomalacia involving the left frontal temporal to a lesser extent parietal poles with wallerian degeneration into the left ventral mid shannan following the left MCA territory. Bilateral multifocal patchy deep periventricular white matter hypodensity. Prominence of the extra-axial CSF spaces cerebral sulci and ventricles. Sellar/suprasellar region demonstrated no gross masses. There is normal position of the cerebellar tonsils. Calcific hyperintense deformity left eyeball, unchanged. Extraocular prosthesis. Calcified plaques in the cavernous supraclinoid segments both ICAs. No air-fluid levels in the paranasal sinuses. Tympanic cavities and mastoid air cells are aerated. CT/CT head/brain wo IV con IMPRESSION: No acute fracture, bony calvarium. No acute intracranial hemorrhage. Encephalomalacia sequela of prior vascular insult left MCA territory. Small vessel occlusive disease. Phthisis bulbi, left side. Electronically signed by: Kevin Cervantes MD 09/22/2024 12:18 PM EDT
--- NOTE | ~2024-09-22 | CT_ITS ---
EXAMINATION: CT ANGIOGRAM ABDOMEN AND PELVIS CLINICAL INFORMATION: Marfan syndrome, hypotensive , aortic dissection COMPARISON: None available. TECHNIQUE: Multiple axial images were obtained through the abdomen and pelvis following the administration of 100 mL of Omnipaque 350 intravenous contrast. Images were reviewed on a dedicated 3-D workstation. This CT examination was performed using dose optimization techniques as appropriate, variously including the following: *Automated exposure control *Adjustment of mA and/or kV according to patient size (this includes techniques or standardized protocols for targeted exams where dose is matched to indication/reason for exam; i.e. extremities or head) *Use of iterative reconstruction technique COMPARISON: None available. DLP: 1595 mGY*cm FINDINGS: LUNGS AND PLEURA: There is a 5 mm nodule in the posterior base of the right lower lobe. There is no pleural effusion. ABDOMINAL AORTA: There is an stent graft in the descending thoracic aorta. The upper margin of the stent is not visible. The stent terminates near the diaphragmatic hiatus. There is a thin crescent of low-attenuation along the left side of the distal end of the stent graft. There is dissection of the entire abdominal aorta extending from the distal end of the thoracic aortic stent graft/diaphragmatic hiatus to the bifurcation. The true lumen is anterior and smaller than the false lumen that is dorsal. Most of the false lumen is opacified with contrast, likely communicating with the origin of the left common iliac artery. The false lumen measures 2.1 cm anterior posterior and 2.6 cm transversely. Contrast extends up 14 cm. The cephalad 7 mm of the false lumen is not opacified with contrast filled with low-density material. The origin of all mesenteric vessels is from the true lumen. There is a stent in the proximal celiac artery near the origin. It is patent. SMA is patent. MELANY is patent. Both renal arteries are patent. There is a stent at the origin of the left renal artery. HEPATOBILIARY: There is a 3.8 cm fluid attenuating lesion in the anterior right hepatic lobe consistent with a simple hepatic cyst. There are smaller similar lesions in the right hepatic lobe. The gallbladder contains no visible stones. There is no intrahepatic or extrahepatic biliary ductal dilation. PANCREAS: The pancreas is homogeneous and unremarkable. SPLEEN: The spleen is homogeneous and without enlargement. ADRENALS: Unremarkable without nodules or mass. GENITOURINARY: There is no hydronephrosis. There is 2 mm stone in the mid left kidney. There is no bladder wall thickening. BOWEL: The GE junction is displaced consistent with small sliding hiatal hernia.. The GI tract is unremarkable. The appendix is clearly seen but there is no inflammatory changes in the mesoappendix. LYMPHATICS: There is no adenopathy. ABDOMINAL CAVITY and WALL: No ascites, mesenteric engorgement or fat stranding, or free air. There is no hernia. SOFT TISSUES: Unremarkable without abnormal masses or fluid collections. Skeletal structures: Moderate degenerative changes are present in the spine, most advanced at L3-4 where there is endplate sclerosis, osteophytes, and moderate disc space narrowing. There is axial joint space narrowing of both hip joints and coxa profunda. CT/CT angio abdomen pelvis IMPRESSION: Abdominal aortic dissection. Dissection begins at the distal end of a thoracic aortic stent graft and extends to the origin of the left common iliac artery. There is opacification of the false lumen from the posterior wall of the left common iliac artery. Mesenteric vessels are all opacified from the true lumen. Dr. Villalpando notified via [employer] at 12:12pm ET There is a 2 mm nonobstructing stone in the mid left kidney. 5 mm nodule in the posterior base of the right lower lobe. No further follow-up is indicated per Fleischner Society recommendations, unless the patient falls into a high risk category, in which case a 12 month follow-up CT chest without contrast is optional. High risk patients includes those with a history of smoking, first-degree relative with lung cancer, or exposure to uranium, radon, or asbestos.. Electronically signed by: Kiko Murphy MD 09/22/2024 12:34 PM EDT
--- NOTE | ~2024-09-22 | CT_ITS ---
EXAMINATION: CT CERVICAL SPINE WITHOUT CONTRAST CLINICAL INFORMATION: Status post fall. COMPARISON: January 13, 2023. TECHNIQUE: Contiguous axial images through the cervical spine using 3 mm collimation with bone and soft tissue algorithm. Sagittal and coronal reformatted images acquired. DLP: 300.[address] examination was performed using dose optimization techniques as appropriate, variously including the following: *Automated exposure control *Adjustment of mA and/or kV according to patient size (this includes techniques or standardized protocols for targeted exams where dose is matched to indication/reason for exam; i.e. extremities or head) *Use of iterative reconstruction technique FINDINGS: Craniocervical junction is intact with degenerative changes demonstrated normal alignment between the occipital condyles and the lateral masses of C1. There is a levoconvex curvature of the lumbar spine which could be positional. Small marginal osteophyte formation and endplate sclerosis subchondral cyst formation and decreased intervertebral disc height from C3-4 to C5-6 level. Reverse curvature apex at C4. Grade 1 retrolisthesis C4-5 on a degenerative basis. Scalloping of the right transverse process of C4, unchanged. C1 is intact. C2 is intact. C3 is intact. C4 is intact with a prominent right transverse processes. C5 is intact. Right facet joint hypertrophy. C6 is intact. Right facet joint hypertrophy. C7 is intact. Bilateral facet joint hypertrophy No prevertebral compartment hematoma. There is a [place] bypass both carotic arteries anterior to the thyroid gland and just below the thyroid cartilage. There is stent of the thoracic aorta no fully included in the [id number]. Tympanic cavities and mastoid cells are aerated. Pulmonary patchy groundglass.. CT/CT cervical spine wo IV con IMPRESSION: Multilevel spondylosis and scoliosis pronounced from C3 to C6 without acute fracture or trauma-related listhesis. Stable additional findings. Fleischner guidelines were followed. Electronically signed by: Kevin Cervantes MD 09/22/2024 12:29 PM EDT
[2024-09-22] MEDS: SODIUM CHLORIDE 2253 ML IV (10:48)
[2024-09-22 10:54] LABS: MANUAL DIFF FLAG NO
--- NOTE | 2024-09-22 10:57 | ED_ITS ---
HPI - Fall General Chief Complaint: Fall Stated Complaint: FALL,+THIN,NON VERBAL/NO COMPLAINTS,SNF PER EMS Time Seen by Provider: 09/22/24 10:35 Source: family, EMS, RN notes reviewed and old records reviewed Mode of arrival: EMS Limitations: no limitations History of Present Illness ED Provider: DR. 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 Patient came in accompanied with MOLST form DNR/ intubate and ventilate if needed/ transferred to the hospital. Related Data Home Medications ?Medication ?Instructions ?Recorded ?Confirmed Saccharomyces boulardii 250 mg 250 mg PO BID 05/13/21 09/22/24 capsule (Florastor) atorvastatin 80 mg tablet 80 mg PO BEDTIME 05/13/21 baclofen 10 mg tablet 20 mg PO TID@0800,1400,199905/13/21 09/22/24 melatonin 3 mg tablet 9 mg PO BEDTIME 05/13/21 metoprolol tartrate 25 mg tablet 25 mg PO BID 05/13/21 09/22/24 multivitamin 1 tab PO DAILY 05/13/2108/27 sennosides 8.6 mg tablet (senna) 17.2 mg PO BEDTIME Co nstipation 05/13/21 09/22/24 acetaminophen 325 mg tablet 650 mg PO Q6H PRN Fever Or Pain 04/13/22 09/22/24 bisacodyl 10 mg rectal suppository 10 mg OH DAILY PRN Constipation 04/13/22 09/22/24 magnesium hydroxide 400 mg/5 mL 30 ml PO DAILY PRN Con stipation 04/13/22 09/22/24 oral suspension (Milk of Magnesia) sodium phosphates 19 gram-7 118 ml OH DAILY PRN Consti pation 04/13/22 09/22/24 gram/118 mL enema (Fleet Enema) aripiprazole 30 mg tablet (Abilify) 30 mg PO DAILY 09/22/24 escitalopram oxalate 20 mg tablet 20 mg PO DAILY 09/2209/22/24 (Lexapro) gabapentin 100 mg capsule 200 mg PO BID 09/22/2409/22 levetiracetam 750 mg tablet 750 mg PO BID 09/22/24 (Keppra) lorazepam 1 mg tablet 1 mg PO DAILY 09/22/2409/22 midodrine 10 mg tablet 10 mg PO TID 09/22/24 ondansetron HCl 4 mg tablet 4 mg PO Q6H PRN Nausea And Vomiting 09/22/24 09/22/24 pantoprazole 40 mg tablet,delayed 40 mg PO DAILY@0630 09/22/24 09/22/24 release polyethylene glycol 3350 17 17 g PO DAILY 09/22/24 gram/dose oral powder (Miralax) sodium fluoride 1.1 %-potassium 1 appl dental BEDTIME 09/22/24 09/22/24 nitrate 5 % dental paste (PreviDent 5000 Sensitive) sucralfate 1 gram tablet 1 g PO TID 09/22/24 09/22/24 thiamine HCl (vitamin B1) 100 mg 100 mg PO DAILY 09/2209/22/24 tablet warfarin 1 mg tablet 1 mg PO DAILY@1800 09/22/24 09/22/24 warfarin 6 mg tablet 6 mg PO DAILY@1800 09/22/24 09/22/24 Allergies Allergy/AdvReac Type Severity Reaction Status Date / Time No Known Allergies Allergy Verified 09/22/24 09:43 Review of Systems 2 Review of Systems: Yes Unobtainable due to mental condition [facility] Past Medical History Medical History GERD (gastroesophageal reflux disease) Depression HTN (hypertension) CVA (cerebral vascular accident) Social History Social History Unable to assess alcohol history related to: Unknown and Refusing to respond Alcohol intake: never Patient Tobacco Use Status: Never used Tobacco Advance Directives: Yes Advance Directives on File: Yes Advance Directives Date on File: 04/13/22 Physical Exam 2 Vital Signs: Vital Signs: Last Vital Signs Temp 98.6 F 09/22/24 14:19 Pulse 101 H 09/22/24 14:42 Resp 16 09/22/24 14:19 BP 96/65 09/22/24 14:42 Pulse Ox 97 09/22/24 14:42 O2 Del Method Room Air 09/22/24 14:42 BMI result Body Mass Index 26.7 Vital signs have been reviewed and appear to be correct. Blood pressure is low, Heart rate normal. Respiratory rate normal. Temperature normal. Oxygen saturation normal. Appearance: Alert, regards examiner,No acute distress. Head: Normal external exam. Normocephalic. Atraumatic. No Nicole signs noted. No raccoon eyes noted Eyes: PERRLA. EOMI. Conjunctiva and sclera normal. Eyelids normal. ENT: TM's Normal. Pharynx normal. Uvula midline. Moist mucous membranes. No trismus noted. No drooling noted. No muffled voice noted. Neck: Normal inspection. Neck supple. FROM. No adenopathy. Thyroid Normal. No meningeal signs. No neck mass noted. CVS: Normal heart rate and rhythm. Heart sound normal. No murmurs noted. Pulses normal throughout. Respiratory: No respiratory distress. Painless inspiration. Breath sounds normal. No wheezes/rales/rhonchi noted. Chest nontender. No accessory muscle usage noted or decreased air movement noted. Abdomen: Soft and nontender. Bowel sounds normal in all 4 quadrants. No distention noted. No organomegaly noted. No visible injury noted. Back: No CVA tenderness. Full range of motion noted. Skin: Skin warm and dry. Normal skin color. Normal skin turgor. No rashes/lesions/lacerations noted. Extremities: No lower extremity edema. Extremities exhibit normal range of motion. Extremities nontender. Neuro: regards examiner. Cranial nerve exam: II-XII are grossly intact No motor deficit. No sensory deficit. Reflexes normal. Course Reevaluation(s) Reevaluation #1: @ 12:12 I was notified by Radiology that the study is positive for aortic dissection, @12;16 the case was reviewed with immediately recommended to transfer the patient to a tertiary, however after he reviewed the CAT scan he felt that there is acute aortic dissection, case was discussed with Dr. Rebolledo surgeon on-call for cardiovascular service at [facility] who also reviewed the CAT scan and got back to me there is no acute vascular intervention is needed point, meanwhile there is a temporary improvement of blood pressure after patient received 2,253 cc. 12:35 The case was discussed with Trauma surgeon on-call at [facility] Dr. Killian who declined accepted the patient since there is no obvious injury. At this point patient was started on Levophed to support his hypotension. Case discussed with Dr. Turner vascular surgeon at [facility] who also reviewed the CT study and recommended to send the patient to the original hospital where the surgery was done, no available past medical history on the patient, attempt to call his healthcare proxy brother Celio and left a voice message with no call back. @ 2:30 discussed with [facility] to transfer the patient as a trauma and hypotension post fall, and finally patient was accepted to [facility] as a trauma/hypotension / need pressor, accepted by Dr.Kathreen King to the ED. Stable H&H, no blood transfusion is required at at the moment. Continue with pressor support blood pressure did not respond to IV fluids. Empirical ceftriaxone. Arrange for transportation by ALS. Medications Administered Generic Name Dose Route Start Last Admin Trade Name Freq PRN Reason Stop Dose Admin Norepinephrine Bitartrate 8 mg in 250 mls @ 0 mls/hr 09/22/24 14:15 09/22/24 14:20 Levophed IVCONT 0.1 mcg/kg/min .Q0M MICHAEL 14.08 mls/hr Protocol Titration Per Protocol Discontinued Medications Generic Name Dose Route Start Last Admin Trade Name Freq PRN Reason Stop Dose Admin Ceftriaxone Sodium 1 gm 09/22/24 10:41 09/22/24 11:04 Ceftriaxone Sodium 1 Gm Vial IVPUSH 09/22/24 10:42 1 gm ONCE ONE Administration Sodium Chloride 2,253 mls @ 2,253 mls/hr 09/22/24 10:41 09/22/24 12:05 Ns 30 ml/kg infuse over 1 hr (2253 ml) 09/22/24 11:40 Infused IV Infusion .Q1H STA Iohexol 100 ml 09/22/24 11:35 09/22/24 11:41 Iohexol 350 Mg/Ml 100 Ml Infus..Btl IV 09/22/24 11:36 85 ml ONCE ONE Administration Midodrine 10 mg 09/22/24 11:11 09/22/24 12:39 Midodrine Hcl 10 Mg Tablet PO 09/22/24 11:12 Not Given ONCE ONE Medical Decision Making Differential Diagnosis Differential Diagnoses: The differential diagnosis associated with the presentation includes ( aortic dissection, sepsis, dehydration, hypotension, electrolyte derangement, severe anemia , intra-abdominal injury, intracranial injury, cervical spine injury.) Admission/Observation Consideration of admission/observation: Escalation of care including admission/observation considered Consult Healthcare Provider Management of the patient was discussed with: Setter Off ( Dr. Hammer.) Lab Data MDM Lab Attestation statement: I reviewed the patient's lab results. 09/22/24 10:44 09/22/24 10:44 Labs: Lab Results 09/22/24 09/22/24 09/22/24 Range/Units 10:43 10:44 10:58 WBC 7.8 (4.8-10.8) X10*3/uL RBC 4.40 L (4.60-5.80) X10*6/uL Hgb 10.9 L (14.0-18.0) g/dl Hct 35.3 L (42.0-52.0) % MCV 80.2 (80.0-98.0) fL MCH 24.8 L (27.0-33.0) pg MCHC 30.9 L (31.0-36.0) g/dl RDW 18.3 H (11.0-16.0) % Plt Count 177 (160-400) X10*3/uL MPV 11.7 (9.4-12.4) fL Immature Gran % (Auto) 0.4 (0.0-0.4) % Neut % (Auto) 70.6 (45-73) % Lymph % (Auto) 19.2 L (20-40) % [place] % (Auto) 8.2 (2-11) % Eos % (Auto) 1.2 (0-4) % Baso % (Auto) 0.4 (0-2) % Lymph # (Auto) 1.5 (1.2-4.9) X10*3/uL [place] # (Auto) 0.6 (0.1-1.2) X10*3/uL Eos # (Auto) 0.1 (0.0-0.4) X10*3/uL Baso # (Auto) 0.0 (0.0-0.2) X10*3/uL Abs Immat Gran (auto) 0.03 (0.00-0.03) X10*3/uL Absolute Neuts (auto) 5.5 (2.0-8.3) x10*3/uL Absolute Nucleated RBC 0.000 (0.0-0.012) X10*3/uL Nucleated RBC % (auto) 0.0 (0.0-0.2) /100WBC PT (10.9-12.4) SEC INR (0.9-1.1) Whole Blood INR Sodium 143 (135-145) mmol/L Potassium 3.3 (3.3-5.1) mmol/L Chloride 107 (96-108) mmol/L Carbon Dioxide 27 (22-29) mmol/L Anion Gap 12 (12-20) BUN 13 (9-16) mg/dL Creatinine 0.77 (0.5-1.4) mg/dL Estim Creat Clear Calc 95.5 Estimated GFR > 60 Random Glucose 88 (60-115) mg/dL Lactic Acid 1.4 (0.5-2.0) mmol/L Calcium 8.6 (8.4-10.2) mg/dL Magnesium 1.8 (1.6-2.6) mg/dL Total Bilirubin 0.5 (0.0-1.0) mg/dL AST 32 (5-37) U/L ALT 26 (0-40) U/L Alkaline Phosphatase 112 (39-117) U/L Troponin I High Sens 9.3 D (<3.5-35.0) ng/L Total Protein 7.6 (6.5-8.0) g/dL Albumin 4.0 (3.5-5.0) g/dL Urine Color Yellow Urine Appearance Clear Urine pH 7.0 (5.0-9.0) Ur Specific [place] 1.020 (1.005-1.025) Urine Protein Negative (Neg-Trace) mg/dL Urine Glucose (UA) Negative (Negative) mg/dL Urine Ketones Negative (Negative) mg/dL Urine Blood Trace H (Negative) Urine Nitrite Negative (Negative) Ur Leukocyte Esterase Negative (Negative) Urine RBC 6-10 H (0-2) /HPF Urine WBC 0-5 (0-5) /HPF Ur Squamous Epith Cells 0-2 (0-2) /HPF Urine Bacteria None Seen (None Seen) Hyaline Casts 0-2 (0-2) /LPF Blood Type Antibody Screen 09/22/24 09/22/24 Range/Units 12:20 12:29 WBC (4.8-10.8) X10*3/uL RBC (4.60-5.80) X10*6/uL Hgb (14.0-18.0) g/dl Hct (42.0-52.0) % MCV (80.0-98.0) fL MCH (27.0-33.0) pg MCHC (31.0-36.0) g/dl RDW (11.0-16.0) % Plt Count (160-400) X10*3/uL MPV (9.4-12.4) fL Immature Gran % (Auto) (0.0-0.4) % Neut % (Auto) (45-73) % Lymph % (Auto) (20-40) % [place] % (Auto) (2-11) % Eos % (Auto) (0-4) % Baso % (Auto) (0-2) % Lymph # (Auto) (1.2-4.9) X10*3/uL [place] # (Auto) (0.1-1.2) X10*3/uL Eos # (Auto) (0.0-0.4) X10*3/uL Baso # (Auto) (0.0-0.2) X10*3/uL Abs Immat Gran (auto) (0.00-0.03) X10*3/uL Absolute Neuts (auto) (2.0-8.3) x10*3/uL Absolute Nucleated RBC (0.0-0.012) X10*3/uL Nucleated RBC % (auto) (0.0-0.2) /100WBC PT 34.2 H (10.9-12.4) SEC INR 3.0 H (0.9-1.1) Whole Blood INR Cancelled Sodium (135-145) mmol/L Potassium (3.3-5.1) mmol/L Chloride (96-108) mmol/L Carbon Dioxide (22-29) mmol/L Anion Gap (12-20) BUN (9-16) mg/dL Creatinine (0.5-1.4) mg/dL Estim Creat Clear Calc Estimated GFR Random Glucose (60-115) mg/dL Lactic Acid (0.5-2.0) mmol/L Calcium (8.4-10.2) mg/dL Magnesium (1.6-2.6) mg/dL Total Bilirubin (0.0-1.0) mg/dL AST (5-37) U/L ALT (0-40) U/L Alkaline Phosphatase (39-117) U/L Troponin I High Sens (<3.5-35.0) ng/L Total Protein (6.5-8.0) g/dL Albumin (3.5-5.0) g/dL Urine Color Urine Appearance Urine pH (5.0-9.0) Ur Specific [place] (1.005-1.025) Urine Protein (Neg-Trace) mg/dL Urine Glucose (UA) (Negative) mg/dL Urine Ketones (Negative) mg/dL Urine Blood (Negative) Urine Nitrite (Negative) Ur Leukocyte Esterase (Negative) Urine RBC (0-2) /HPF Urine WBC (0-5) /HPF Ur Squamous Epith Cells (0-2) /HPF Urine Bacteria (None Seen) Hyaline Casts (0-2) /LPF Blood Type A Positive Antibody Screen NEGATIVE Independent Interpretation I performed an independent interpretation of an: CT Scan ( head/C-spine / abdomen pelvis:Abdominal aortic dissection. Dissection begins at the distal end of a thoracic aortic stent graft and extends to the origin of the left common iliac artery. There is opacification of the false lumen from the posterior wall of the left common iliac artery. Mesenteri) Radiology Impression Discussion of test interpretation with radiology: I have reviewed the radiologist's reading. Critical Care Time Critical Care Time Critical Care Time: Yes Total Critical Care Time: 80 Attestation: The patient was critically ill with a high probability of imminent or life- threatening deterioration. I spent greater than 30 minutes of discontinuous time evaluating the patient, delivering critical care at the bedside, discussing evaluating data with consultants. Critical care time does not include time spent performing separately billable procedures or teaching. Time spent performing critical care was 80 minutes. Discharge Plan Discharge Clinical Impression: Hypotension, Fall Patient Disposition: Xfer Acute Care Hospital Transfer Details: [facility] Prescriptions: No Action acetaminophen 325 mg Tablet 650 mg PO Q6H PRN (Reason: Fever Or Pain) magnesium hydroxide [Milk of Magnesia] 400 mg/5 mL Suspension 30 ml PO DAILY PRN (Reason: Constipation) Rx Instructions: for no BM after 3 days bisacodyl 10 mg Suppository 10 mg OH DAILY PRN (Reason: Constipation) Fleet Enema 19-7 gram/118 mL Enema 118 ml OH DAILY PRN (Reason: Constipation) Rx Instructions: when dulcolax not effective multivitamin Tablet 1 tab PO DAILY atorvastatin 80 mg Tablet 80 mg PO BEDTIME sennosides [senna] 8.6 mg Tablet 17.2 mg PO BEDTIME melatonin 3 mg Tablet 9 mg PO BEDTIME baclofen 10 mg Tablet 20 mg PO TID@0800,1400,2000 Saccharomyces boulardii [Florastor] 250 mg Capsule 250 mg PO BID metoprolol tartrate 25 mg Tablet 25 mg PO BID ondansetron HCl [Zofran] 4 mg Tablet 4 mg PO Q6H PRN (Reason: Nausea And Vomiting) thiamine HCl (vitamin B1) 100 mg Tablet 100 mg PO DAILY warfarin 6 mg Tablet 6 mg PO DAILY@1800 Rx Instructions: TDD 7MG levetiracetam [Keppra] 750 mg Tablet 750 mg PO BID lorazepam 1 mg Tablet 1 mg PO DAILY warfarin 1 mg Tablet 1 mg PO DAILY@1800 Rx Instructions: TDD 7MG polyethylene glycol 3350 [Miralax] 17 gram/dose Powder 17 g PO DAILY midodrine 10 mg Tablet 10 mg PO TID Rx Instructions: do not give last dose of day after 6PM or within 4 hrs of bedtime aripiprazole [Abilify] 30 mg Tablet 30 mg PO DAILY sucralfate 1 gram Tablet 1 g PO TID pantoprazole 40 mg Tablet,Delayed Release (Dr/Ec) 40 mg PO DAILY@0630 gabapentin 100 mg Capsule 200 mg PO BID escitalopram oxalate [Lexapro] 20 mg Tablet 20 mg PO DAILY sodium fluoride-pot nitrate [PreviDent 5000 Sensitive] 1.1-5 % Paste 1 appl DENTAL BEDTIME Rx Instructions: brush teeth using soft brush for at least 1 min ; rinse mouth thoroughly and spit out Referrals: Sherwin Iraheta MD [Primary Care Provider, Internal Medicine] Sherwin Iraheta MD [Physician, Medical] Print Language: Portuguese
[2024-09-22 11:00] LABS: Hematocrit 35.3 % (42.0-52.0); Hemoglobin 10.9 g/dl (14.0-18.0); Imm Gran Abs Auto 0.03 X10*3/uL (0.00-0.03); Imm Gran Pct Auto 0.4 % (0.0-0.4); Lymphocytes Absolute Auto 1.5 X10*3/uL (1.2-4.9); Mean Corpuscular HGB Conc 30.9 g/dl (31.0-36.0); Mean Corpuscular Hemoglobin 24.8 pg (27.0-33.0); Mean Corpuscular Volume 80.2 fL (80.0-98.0); NRBC Abs Auto 0.000 X10*3/uL (0.0-0.012); NRBC Pct Auto 0.0 /100WBC (0.0-0.2); Platelet Count 177 X10*3/uL (160-400); Red Blood Count 4.40 X10*6/uL (4.60-5.80); White Blood Count 7.8 X10*3/uL (4.8-10.8)
--- NOTE | 2024-09-22 11:10 | PC.NURSE ---
Pt afebrile (98.5 R); taccycardic and hypotensive; pt non-verbal at baseline and R arm contracted from previous CVA; sepsis protocol initiated at 1029; IVF's infusing per orders; pt straight-cath'd for urine; lab results pending; report to JEANCARLOS Hammond; care relinquished at this time
[2024-09-22 11:12] LABS: Alanine Aminotransferase 26 U/L (0-40); Albumin Level 4.0 g/dL (3.5-5.0); Alkaline Phosphatase 112 U/L (39-117); Anion Gap 12 (12-20); Aspartate Amino Transferase 32 U/L (5-37); Blood Urea Nitrogen 13 mg/dL (9-16); Calcium 8.6 mg/dL (8.4-10.2); Carbon Dioxide 27 mmol/L (22-29); Chloride 107 mmol/L (96-108); Creatinine Clr Calc Pharmacy 95.5; Estimated Glomerular Filt Rate > 60; Magnesium 1.8 mg/dL (1.6-2.6); Potassium 3.3 mmol/L (3.3-5.1); Sodium 143 mmol/L (135-145); Total Protein 7.6 g/dL (6.5-8.0)
[2024-09-22 11:13] LABS: Appearance Urine Clear; Glucose Urine UA Negative (Negative); PH 7.0 (5.0-9.0); Specific Gravity - Urine 1.020 (1.005-1.025); UMIC TRIGGER UACC YES
[2024-09-22 11:20] LABS: Troponin-I High Sensitivity 9.3 ng/L (<3.5-35.0)
[2024-09-22] MEDS: iohexoL 350 MG/ML 100 ML INFUS..BTL IV (11:41)
--- NOTE | 2024-09-22 11:43 | PHA.MEDREC ---
Pharmacy Consult ? Medication Reconciliation Pharmacy has completed the medication reconciliation. Utilized list from facility.
--- OUTSIDE RECORDS SUMMARY | 2024-09-22 12:26 | XMS_ITS | Encounter Summary ---
Author Organization [employer] Address [address] [place] [address] Care Team Providers Care Senior Research Scientist Name Role Phone Unavailable Primary Care Provider Unavailabl e Encounter Details Date Type Department Care Team (Latest Contact Info) Description 11/21/2018 Abstract [facility] CONVERSIONS Dental, Provider, DDS Social History Tobacco Use Types Packs/Day Years Used Date Smoking Tobacco: Never Assessed Sex and Gender Information Value Date Recorded Sex Assigned at Male 12/26/2021 10:14 AM EDT Legal Sex Male 10:14 AM EDT Gender Identity Male 12/26/2021 10:14 AM EDT Sexual Orientation Choose not to disclose 2021 10:14 AM EDT documented as of this encounter Plan of Treatment Not on file documented as of this encounter Visit Diagnoses Not on filedocumented in this encounter
--- OUTSIDE RECORDS SUMMARY | 2024-09-22 12:26 | XMS_ITS | Data Portability ---
Author Organization [place] - [facility], [facility] Address [address] [place] [address] Assessment Encounter Date Assessment Date Assessment LastModified by Organization Details LastModified Time 06/14/2023 06/14/2023 Chief complaint Follow-up evaluation for 57-year-old male with history of marfan's, CVA with expressive aphasia, cognitive impairment, legally blind for left proximal humerus injury. History of present illness Patient arrived to us in a wheelchair, history of a left arm injury, unspecified time frame. Reportedly was sent to [facility] on 12/17/2022 with a seizure, at that time they discovered on x-rays what appeared to be a fracture age-indeterminat e of the left proximal humerus. There was no specific injury noted, presumption was this was related to his seizure. Interestingly in his [facility] records, there is also a consultation dated 11/27/2021 where a PA had seen him for an incidental finding of a proximal humeral fracture on chest x-ray, he was also being admitted for evaluation of seizure and GI bleed, so no acute treatment was recommended. Patient was advanced weightbearing as tolerated on the arm at last visit, discontinue the sling, and recommended starting physical therapy. His attendant states that he sometimes refuses this. They are also trying to work on range of motion of the right hand where he has a contracture from his seizure, but he often refuses this. Past medical history Notable for aortic aneurysm, blindness, Marfan syndrome, aortic valve repair, depression, reflux, question of seizures, history of CVA and hypertension. Medications reviewed, on Coumadin, Ativan baclofen Abilify thiamine, as well as others reviewed. No allergies. Exam Patient is in a wheelchair, seen today with her attendant. His right hand has a significant contracture with thumb and palm, patient is resistant to mobilization of the thumb, the fingers can be extended slightly. No open wounds noted. On the left-hand side, he tolerates elevation to 45 degrees, abduction 35 degrees external rotation of about 20 degrees limited by pain, no gross instability noted, he is nontender to palpation up and down the length of the arm. Imaging 2views left shoulder, ordered obtained today reviewed the office show an impacted surgical neck fracture of the proximal humerus, joint reduced, and there is continued bridging callus. No change in position.. Impression Left proximal humeral fracture, healed, would continue working on range of motion and activity. Encouraged the patient to participate in this, and suggested to him that he can also do exercises in between therapy sessions. I did make an attempt at placing a gauze roll on the right hand, but patient did not tolerate. Could attempt a rolled up washcloth or similar smaller padding to put between the thumb and the palm, to passively extend the digits as well. Continue vitamin D and calcium supplementation, follow-up with me as needed. Today's visit lasted in excess of 25 minutes, majority spent in discussion and consultation, prolonged visit because of communication barriers. Copy to [place] [id number] Sherwin rivas Fax number [phone] speech recognition rf test engineer software was used to create portions of this document. An attempt at proofreading has been made to minimize errors. Please call for corrections. [email or web address] Not available 06/14/2023 11:39:57 Plan of Treatment Reminders Order Date Submit Date Provider Last Modified By Organization Details Last Modified Time Details Appointments None recorded. Lab None recorded. Referral physical therapist referral - DIAGNOSIS: proximal humerus fracture DOI: Unknown, estimated March 2023 EVAL AND TX: Patient may begin active assisted and passive range of motion of the left shoulder, begin with elevation, then abduction and rotation last. Self limit as needed for pain. May also passively extend the right hand and thumb by placing a washcloth, or rolled gauze within same as tolerated. FREQUENCY: 2-3 TIMES/WEEK DURACTION: 4-6 WEEKS 2023 024 [email or web address] [id number] Not available 13:19:41 Procedures None recorded. Surgeries None recorded. Imaging XR, shoulder, 2 or more view - rm 310 3 v left shoulder 2023 024 [email or web address] [facility], [address], [facility] [address], [place], [address], 4 17:44:17 Medication Orders None recorded. Patient TargetsNo targets recorded. Patient InstructionsNo instructions recorded. Reason for Referral Physical Therapist Referral for Closed fracture of upper end of humerus DIAGNOSIS: proximal humerus fractureDOI: Unknown, estimated March 2023EVAL AND TX:Patient may begin active assisted and passive range of motion of the left shoulder, begin with elevation, then abduction and rotation last. Self limit as needed for pain.May also passively extend the right hand and thumb by placing a washcloth, or rolled gauze within same as tolerated.FREQUENCY: 2-3 TIMES/WEEKDURACTION: 4-6 WEEKS Referring Physician: Enoc Vásquez, Orthopedic Surgery, [id number] Encounter Date: 06/14/2023 Medical Equipment None Reported. Allergies No known drug allergies Medications Name Sig Start Date Stop Date Status Note LastModified by Organization Details LastModified Time metoprolol succinate ER 100 mg tablet,extende d release 24 hr Take 1 tablet every day by oral route. active Not Available Not Available No t Available Coumadin 1 mg tablet Take 1 tablet every day by oral route. active Not Available Not Available No t Available atorvastatin active Not Available Not Available Not Available midodrine active Not Available Not Alyssia ilable Not Available Carafate active Not Available Not Avai lable Not Available gabapentin active Not Available Not Av ailable Not Available Keppra active Not Available Not Availa ble Not Available Florastor active Not Available Not Alyssia ilable Not Available Lexapro active Not Available Not Avail able Not Available Abilify active Not Available Not Avail able Not Available thiamine HCl (bulk) active Not Available Not Available Not Available Vitals Date Recorded Body height Body mass index (BMI) Body weight Provider Name and Address Organization Details Last Updated DateTime 06/14/2023 187.96 cm 25.7 kg/m2 27150.47 g Jessica Garibay [place] - [place] [facility] 06/14/2023 10:51:23 Social History None recorded. Functional Status None recorded. Mental Status None recorded. Family History Nothing Reported. Medical History No medical history recorded. Past Encounters Encounter ID Performer Location Encounter Start Date Encounter Closed Date Diagnosis/Indication Diagnosis SNOMED-CT Code Diagnosis ICD10 Code Diagnosis Note [id number] MD [facility] [address], [place] [address] 06/14/2023 10:43:43 06/14/2023 11:41:05 Closed fracture of upper end of humerus 24803370 S4 Health Concerns Section Related Observation LastModified by Organization Detai ls LastModified Time None Recorded Concern Status LastModified by Organization Details LastModified Time None Recorded Advance Directives Directive None Recorded Payers Insurance Date Sequence Insurance Name Policy Number Policy Felder Covered Member ID Felder Member ID Guarantor Name 06/14/2023 1 [place] [employer] Patrick L Coreas [id number] Patrick Coreas 07/05/2023 2 [place] [facility] Patrick L Coreas [id number] Patrick Coreas 06/14/2023 [facility] Patrick Coreas [id number] Patrick Coreas
--- OUTSIDE RECORDS SUMMARY | 2024-09-22 12:26 | XMS_ITS | Encounter Summary ---
Author Organization [facility] Address [address] [place] [address] Care Team Providers Care Weight Reducing Technician Name Role Phone Donovan Cobos MD Primary Care Provider [phone] Encounter Details Date Type Department Care Team (Late st Contact Info) Description 08/18/[address] [facility] - [facility] Lab [address] [place] [address] Sherwin Iraheta MD [address] [place], [address] Presence of prosthetic heart valve Social History Tobacco Use Types Packs/Day Years Used Date Smoking Tobacco: Never Assessed Sex and Gender Information Value Date Recorded Sex Assigned at Not on file Legal Sex Male 7:29 PM EST Gender Identity Not on file Sexual Orientation Not on file documented as of this encounter Plan of Treatment Not on file documented as of this encounter Procedures Procedure Name Priority Date/Time Associated Diagnosis Comments PROTHROMBIN TIME WITH INR Routine 08/19/2024 8:01 AM EDT Presence of prosthetic heart valve documented in this encounter Results * (ABNORMAL) Prothrombin time with INR (08/19/2024 8:01 AM EDT) Protime 25.1(H) 10.6 - 13.9 sec LAB COAGULATION METHOD 08/19/2024 10:[address] [facility] INR 2.0 LAB COAGULATION METHOD 08/19/2024 10:[address] [facility] Blood Venous blood specimen / Unknown Venipuncture / Unknown 08/19/2024 8:01 AM EDT 08/19/2024 9:22 AM EDT us Sherwin Iraheta MD LAB BLOOD ORDERABLES Final Resul t [facility] [address] [place] [address], documented in this encounter Visit Diagnoses Diagnosis Presence of prosthetic heart valve documented in this encounter Care Teams Weight Reducing Technician Relationship Specialty Start Date End Date Donovan Cobos MD [address] [place] [id number] PCP - General Internal Medicine 01/11/24 documented as of this encounter
--- OUTSIDE RECORDS SUMMARY | 2024-09-22 12:26 | XMS_ITS | Patient Health Record ---
Author Organization [facility] Address [address] [place] [address] Care Team Providers Care Marine Cargo Specialist Name Role Phone Sherwin Iraheta MD Primary Care Provider Wil Nielsen [phone] Allergies No Known Allergies Reason For Referral No Information Medications Medication SIG (Take, Route, Frequency, Duration) Notes Start Date End Date Status Ondansetron 4 MG 1 tablet on the tong ue and allow to dissolve Orally Once a day for 30 day(s) Active Coumadin Active Gabapentin 100 MG 1 capsule Orally Onc e a day for 30 day(s) Active Senna 8.6 MG 2 tablets at bedtime as needed Orally Once a day for 30 day(s) Active Escitalopram Oxalate 20 MG 1 tablet Oral ly Once a day for 30 day(s) Active Florastor Advanced - as directed Orally Active Baclofen 20 MG 1 packet as needed Orally Three times a day Active MiraLax 17 GM/SCOOP 1 scoop mixed with 8 ounces of fluid Orally Once a day for 30 day(s) Active Atorvastatin Calcium 80 MG 1 tablet Oral ly Once a day for 30 day(s) Active Midodrine HCl 5 MG 1 tablet Orally Twic e a day for 30 day(s) Active Melatonin 3 MG 1 tablet at bedtime as needed Orally Once a day for 30 day(s) Active levETIRAcetam 250 MG 1 tablet Orally bhumika ry 12 hrs for 30 day(s) Active Lansoprazole 30 MG 1 capsule before a m eal Orally Once a day for 30 day(s) Active ARIPiprazole 10 MG 1 tablet Orally Once a day for 30 day(s) Active Multivitamin - 1 tablet Orally Once a day for 30 day(s) Active Simethicone 40 MG/0.6ML as directed Orally Active Milk of Magnesia 2400 MG/30ML 5 mL at least 4 hours between doses as needed Orally Four times a day Active Acetaminophen 325 MG 1 tablet as needed Orally every 4 hrs Active Immunizations Vaccine Route Administration Date Status Comme nts Influenza Unknown 12/19/2022 Administered Social History Tobacco Use: Social History Observation Description Date Details (start date - stop date) Never Smoker NA - NA Tobacco Use/Smoking Question Answer Notes Patient is a nonsmoker Alcohol Screen Question Answer Notes Did you have a drink containing alcohol in the p ast year? No Points 0 Interpretation Negative Problems Problem Type SNOMED Code ICD Code Onset Dates Problem Status W/U Status Risk Notes Problem Erosive esophagitis (01398096) Erosive esophagitis (K22.10) Active confirmed Problem Gastrointestinal hemorrhage (01314581) GI bleed (K92.2) Active confirmed Problem Gastroesophageal reflux disease (disorder) (274676650) Chronic GERD (K21.9) Active confirmed Plan Of Treatment No Information Insurance Providers Payer Name Payer Address Payer Phone Subscriber Number Group Number Insured Name Patient Relationship to Insured Coverage Start Date Coverage End Date MEDICARE OF [place] [address] [place] [id number] BOBBY DONOHUE Self - patient is the insured MEDICAID OF [facility] [address] [place] [address] [id number] BOBBY DONOHUE Self - patient is the insured Medical (General) History Medical History History ICD Code Seizures GI bleed in January 2023 at [facility] with the discharge diagnosis erosive esophagitis Aortic aneurysm Aortic valve disease with surgery 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
[2024-09-22 12:57] LABS: INTERNATIONAL NORM RATIO 3.0 (0.9-1.1); Prothrombin Time 34.2 SEC (10.9-12.4)
--- NOTE | 2024-09-22 14:16 | PC.NURSE ---
Unable to make contact with pt's health care proxy at this time; Suzan RN from [facility] stated she will try and reach out to him; RN at [facility] states she believes pt had vascular surgery for his aorta at [facility]; unable to verify this at this time; provider aware; pt'd BP down to 70's/30's; Levophed drip started per protocol at 0.05 mcg/kg/min; will cont to monitor/tx per orders
--- NOTE | 2024-09-22 15:33 | PC.NURSE ---
Report called to Patsy RN/triage at [facility] ER for transport; pt's bp stabilized at 109/63 at this time
--- NOTE | 2024-09-25 07:12 | PC.NURSE ---
Late chart entry: pt was transferred on a continuous Norepinephrine drip at 0.1 mcg/kg/min or 14.08 ml/hr; at time of departure with EMS, the pt received approximately 35.2 ml of medication and left with the drip actively infusing
== END 2024-09-22 15:53 | disposition short-term general hospital (02) ==
PROVIDERS: Emergency Provider Emergency Medicine; PCP Family Medicine
DX: I95.9 Hypotension, unspecified (principal); Z91.81 History of falling; N39.0 Urinary tract infection, site not specified; B95.2 Enterococcus as the cause of diseases classified elsewhere; R00.0 Tachycardia, unspecified; I10 Essential (primary) hypertension; I69.351 Hemiplegia and hemiparesis following cerebral infarction affecting right dominant side; K21.9 Gastro-esophageal reflux disease without esophagitis; Z95.0 Presence of cardiac pacemaker; Z79.01 Long term (current) use of anticoagulants; Z79.899 Other long term (current) drug therapy
CPT/HCPCS: 36415; 70450; 72125; 74174; 80053; 81001; 83605; 83735; 84484; 85025; 85610; 86850; 86900; 86901; 87040; 87077; 87186; 87205; 93005; 96361; 96374; 99285; 99291; J0696; Q9967

== ENCOUNTER → 2024-09-22 10:29 | Outpatient (BNV) | payer MEDICARE, MEDICAID, SELFPAY | PROVIDERS: Emergency Provider Emergency Medicine; PCP Family Medicine; Visit Provider Internal Medicine Cardiovascular Disease | DX: R00.0 Tachycardia, unspecified (principal) | CPT/HCPCS: 93010 ==

== ENCOUNTER → 2024-09-22 10:45 | Outpatient (BNV) | payer MEDICARE, MEDICAID, SELFPAY | PROVIDERS: Emergency Provider Emergency Medicine; PCP Family Medicine; Visit Provider Radiology Diagnostic Radiology | DX: I71.02 Dissection of abdominal aorta (principal); M47.812 Spondylosis without myelopathy or radiculopathy, cervical region; I67.82 Cerebral ischemia | CPT/HCPCS: 70450; 72125 ==